=== PATIENT | male | born 1940 | race Caucasian/White ===

== ENCOUNTER → 2017-11-27 10:49 | Outpatient (CLI) | payer OTHER, SELFPAY ==
--- NOTE | 2017-11-27 | DI.ECHO.S_ITS ---
[facility] +---------+ : : [address] [place] : : : : [id number] : : : : Phone: [phone]+ Echocardiogram Report + + :Name: MG CHILDRESS Study Date: 11/27/2017 Height: 70 in : :[facility] Weight: 180 lb : : Gender: Male BSA: 2.0 m2 : :: 1940 Age: 77 yrs BP: 124/52 mmHg: :Reason For Study: Edema : : Performed By: Indy Perry : :Referring: YANETH ARELLANO : + + Interpretation Summary The left ventricle is normal in size, wall thickness, and systolic function without any focal wall motion abnormalities with the ejection fraction visually estimated to be 65-70%. Assessment of diastolic parameters indicates a relaxation abnormality of the left ventricle, consistent with normal filling pressures. The right ventricle is normal in size and function. There is mild pulmonary hypertension with the right ventricular systolic pressure estimated at 37 mmHg assuming a right atrial pressure of 3 mm Hg. The left atrium is moderately dilated and the right atrium is borderline dilated. There is no significant valvular heart disease. The aortic arch is at the upper limits of normal in size. Procedure: A two-dimensional transthoracic echocardiogram with color flow and Doppler was performed. The study quality was technically good. There is no prior echocardiogram noted for this patient. The patient was in normal sinus rhythm during the exam. Left Ventricle: The left ventricle is normal in size, wall thickness, and systolic function without any focal wall motion abnormalities. The ejection fraction is estimated to be 65-70%. Assessment of diastolic parameters indicates a relaxation abnormality of the left ventricle, consistent with normal filling pressures. Right Ventricle: The right ventricle is normal in size and function. Atria: The left atrium is moderately dilated. The right atrium is borderline dilated. The interatrial septum is intact with no evidence for an atrial septal defect. Mitral Valve: The mitral valve is normal in structure and function. There is trace mitral regurgitation. Aortic Valve: The aortic valve is trileaflet. The aortic valve is slightly calcified. The aortic valve opens well. No aortic regurgitation is present. Tricuspid Valve: The tricuspid valve is normal in structure and function. There is trace tricuspid regurgitation. There is mild pulmonary hypertension. The right ventricular systolic pressure is estimated at 37 mmHg assuming a right atrial pressure of 3 mm Hg. Pulmonic Valve: The pulmonic valve is normal in structure and function. There is trace pulmonic regurgitation. There is no significant valvular heart disease. Great Vessels: The aortic root is normal size. The dimensions of the ascending aorta are normal. The aortic arch is at the upper limits of normal in size. The IVC is of normal diameter and collapses greater than 50% with a sniff. This suggests a low right atrial pressure of 3 mm Hg. Pericardium/ Pleura There is no pericardial effusion. There is no pleural effusion. MMode/2D Measurements & Calculations LVIDd: 5.0 cm Ao root diam: 3.7 cm LVIDs: 2.8 cm Aortic Jxn: 2.7 cm FS: 43.7 % asc Aorta Diam: 2.9 cm EPSS: 0.18 cm Ao Arch Diam (Prox Trans): 3.0 cm IVSd: 1.00 cm LVPWd: 0.97 cm LV shelby. diameter/BSA (cm/m^2): 2.5 LV sys. diameter/BSA (cm/m^2): 1.4 LA dimension: 4.2 cm RA long axis: 5.0 cm LA A2 area: 26.5 cm2 RA area: 20.5 cm2 LA A4 area: 26.5 cm2 RA vol: 71.3 ml LA length (vol): 6.1 cm RA : 35.7 ml/m2 LA vol: 98.1 ml IVC diam: 1.5 cm LA vol index: 49.1 ml/m2 RVDd major: 5.5 cm RVD1 (basal): 3.6 cm RVD2 (mid): 3.1 cm Doppler Measurements & Calculations Ao V2 max: 195.3 cm/sec MV E max genaro: 74.1 cm/sec Ao V2 mean: 130.5 cm/sec MV A max genaro: 79.4 cm/sec Ao max P.3 mmHg MV E/A: 0.93 Ao mean P.9 mmHg Med Peak E' Genaro: 8.6 cm/sec Ao V2 VTI: 39.1 cm E/E' med: 8.7 Lat Peak E' Genaro: 10.2 cm/sec E/E' lat: 7.2 E/e' average: 7.9 MV dec time: 0.23 sec MV P1/2t: 67.3 msec TR max genaro: 292.4 cm/sec MV P1/2t max genaro: 72.8 cm/sec TR max P.2 mmHg MVA(P1/2t): 3.3 cm2 PA V2 max: 120.0 cm/sec PA V2 mean: 77.9 cm/sec PA mean P.8 mmHg PA Accel Time: 0.11 sec Reading Physician:CASSIDY
== END ==
PROVIDERS: PCP Internal Medicine; Visit Provider Physician Assistant
DX: R06.00 Dyspnea, unspecified (principal); R60.9 Edema, unspecified
CPT/HCPCS: 93306

== ENCOUNTER → 2018-06-20 09:09 | Outpatient (CLI) | payer OTHER, SELFPAY ==
[2018-06-20 10:13] LABS: BUN Creatinine Ratio 15.7 (6-22); Blood Urea Nitrogen 11 mg/dL (9-20); Calcium 8.7 mg/dL (8.4-10.2); Carbon Dioxide 28 mmol/L (22-32); Chloride 105 mmol/L (98-107); Estimated Glomerular Filt Rate > 60.0 mL/min (>60); Glucose 91 mg/dL (80-110); HEMOLYSIS < 15 (0-50); Potassium 4.2 mmol/L (3.4-5.1); Sodium 141 mmol/L (137-145)
== END ==
PROVIDERS: PCP Internal Medicine; Visit Provider Physician Assistant
DX: I10 Essential (primary) hypertension (principal)
CPT/HCPCS: 36415; 80048

== ENCOUNTER → 2018-12-16 13:16 | Outpatient (CLI) | payer OTHER, SELFPAY ==
--- NOTE | 2018-12-16 13:20 | DI.CT.S_ITS ---
PROCEDURE: CT CHEST WO CON INDICATIONS: CHEST PAIN TECHNIQUE: Noncontrast 5 mm thick sections acquired from the pulmonary apices to the posterior costophrenic angles. 7 mm thick coronal and sagittal MIP reformats were then acquired. For radiation dose reduction, the following was used: automated exposure control, adjustment of mA and/or kV according to patient size. COMPARISON: [facility], CT, ABDOMEN/PELVIS WITHOUT CONTRAS, 09/05/2012, 21:39. [facility], CR, CHEST 2 VIEW, 04/09/2017, 15:24. CT, ABDOMEN/PELVIS WITH CONTRAST, 07/24/2007, 8:55. FINDINGS: Image quality: Excellent. Lungs and pleura: There are right middle lobe and lingular scars and atelectasis. No acute air space opacities. No pleural effusions or pneumothorax. Central and peripheral airways are patent and normal in caliber. Mediastinum: Heart size is normal. No pericardial effusion. Coronary artery calcifications consistent with atherosclerosis. No mediastinal adenopathy by size criteria. Thoracic aorta and central pulmonary arteries are normal in size. Esophagus is normal in caliber. There is a small hiatal hernia. Bones and chest wall: Pectus excavatum. There is deformity of sternum, likely related to prior surgery. No suspicious bony lesions. No vertebral body compression fractures. No axillary or supraclavicular adenopathy by size criteria. Thyroid gland is normal. Abdomen: Small indeterminate hepatic hypodensities are noted, most likely cysts. Visualized upper abdominal solid organs and bowel loops appear normal in the absence of contrast. IMPRESSION: 1. Pectus excavatum. Deformity of sternum is likely postsurgical. Recommend clinical correlation. 2. Small hiatal hernia. 3. Coronary artery atherosclerosis. 4. Right middle lobe and lingular scars and atelectasis. 5. Small indeterminate hepatic hypodensities in the liver are presumably small hepatic cysts. Dictated by: Damion Stafford M.D. on 12/16/2018 at 15:47 Approved by: Damion Stafford M.D. on 12/16/2018 at 17:09
[2018-12-16 15:26] LABS: Alanine Aminotransferase 13 IU/L (21-72); Aspartate Aminotransferase 17 IU/L (17-59); BUN Creatinine Ratio 15.7 (6-22); Blood Urea Nitrogen 11 mg/dL (9-20); Calcium 9.2 mg/dL (8.4-10.2); Carbon Dioxide 29 mmol/L (22-32); Chloride 106 mmol/L (98-107); Cholesterol 151 mg/dL (140-199); Estimated Glomerular Filt Rate > 60.0 mL/min (>60); Glucose 90 mg/dL (80-110); HDL Cholesterol 55 mg/dL (40-60); HEMOLYSIS < 15 (0-50); LDL Cholesterol Calculated 75 mg/dL (<100); Potassium 4.7 mmol/L (3.4-5.1); Sodium 141 mmol/L (137-145); Triglycerides 105 mg/dL (35-150)
== END ==
PROVIDERS: PCP Physician Assistant; Visit Provider Internal Medicine
DX: R07.9 Chest pain, unspecified (principal); M95.4 Acquired deformity of chest and rib; K44.9 Diaphragmatic hernia without obstruction or gangrene; I25.10 Atherosclerotic heart disease of native coronary artery without angina pectoris; J98.4 Other disorders of lung; J98.11 Atelectasis; E78.00 Pure hypercholesterolemia, unspecified; I10 Essential (primary) hypertension
CPT/HCPCS: 36415; 71250; 80048; 80061; 84450; 84460

== ENCOUNTER → 2018-12-29 11:26 | Outpatient (CLI) | payer OTHER, SELFPAY ==
[2018-12-29 12:02] LABS: Add Manual Diff / Slide Review NO; Basophils Absolute Auto 0 /uL (0-100); Basophils Percent Auto 0.5 % (0-2); Eosinophils Absolute Auto 0 /uL (0-450); Eosinophils Percent Auto 0.5 % (2-4); Hematocrit 44.9 % (41-53); Hemoglobin 15.2 g/dL (13.5-17.5); Lymphocytes Absolute Auto 1200 /uL (1100-4500); Lymphocytes Percent Auto 17.4 % (25-40); Mean Corpuscular HGB Conc 33.9 % (30-36); Mean Corpuscular Hemoglobin 30.9 PG (26-34); Mean Corpuscular Volume 91.1 fL (80-100); Monocytes Absolute Auto 600 /uL (0-900); Neutrophils Absolute Auto 5000 /uL (1500-7000); Neutrophils Percent Auto 72.6 % (50-75); Platelet Count 192 X10^3/uL (150-400); Red Blood Cell Count 4.93 X10^6/uL (4.5-5.9); Red Cell Distribution Width 14.1 % (11.6-14.8); White Blood Cell Count 6.9 X10^3/uL (4.5-11.0)
[2018-12-29 13:02] LABS: TSH w/ Reflex to FT4 1.81 uIU/mL (0.47-4.68)
== END ==
PROVIDERS: PCP Physician Assistant; Visit Provider Nurse Practitioner
DX: I10 Essential (primary) hypertension (principal)
CPT/HCPCS: 36415; 84443; 85025

== ENCOUNTER → 2019-01-01 09:29 | Outpatient (CLI) | payer OTHER, SELFPAY ==
--- NOTE | 2019-01-01 09:31 | DI.US.S_ITS ---
PROCEDURE: US CAROTID DOPPLER BI INDICATIONS: RIGHT BRUIT; DIZZINESS TECHNIQUE: Color and pulse Doppler interrogation was performed of both carotid systems, with image documentation and velocity measurements. COMPARISON: None. FINDINGS: Stenosis calculations are based on SRU (Society of Radiologists in Ultrasound) criteria. Right side: Brachial blood pressure: 123/69 mm Hg. Common carotid artery peak systolic velocity: 123 cm/sec. Internal carotid artery peak systolic velocity: 84 cm/sec. Internal carotid artery end diastolic velocity: 22 cm/sec. External carotid artery peak systolic velocity: 80 cm/sec. ICA/CCA peak systolic ratio: 0.7. Emanuel scale imaging description: Mild plaque at the bifurcation. Percent internal carotid artery stenosis: Less than 50%. Vertebral artery: Flow direction is antegrade. Left side: Brachial blood pressure: 119/69 mm Hg. Common carotid artery peak systolic velocity: 135 cm/sec. Internal carotid artery peak systolic velocity: 92 cm/sec. Internal carotid artery end diastolic velocity: 23 cm/sec. External carotid artery peak systolic velocity: 129 cm/sec. ICA/CCA peak systolic ratio: 0.7. Emanuel scale imaging description: Mild plaque at the bifurcation. Percent internal carotid artery stenosis: Less than 50%. Vertebral artery: Flow direction is antegrade. IMPRESSION: Less than 50% stenosis of the internal carotid arteries bilaterally. Dictated by: Maura Graves M.D. on 01/01/2019 at 13:26 Approved by: Maura Graves M.D. on 01/01/2019 at 13:27
== END ==
PROVIDERS: PCP Nurse Practitioner; Visit Provider Nurse Practitioner
DX: I65.23 Occlusion and stenosis of bilateral carotid arteries (principal); R09.89 Other specified symptoms and signs involving the circulatory and respiratory systems; R42 Dizziness and giddiness
CPT/HCPCS: 93880

== ENCOUNTER 2019-03-02 21:35 | Emergency (ER) | payer OTHER, SELFPAY ==
--- NOTE | 2019-03-02 21:46 | DI.RAD.S_ITS ---
PROCEDURE: XR FOOT LT MIN 3V INDICATIONS: stepped on uneven concrete and felt a pop TECHNIQUE: 3 views of the foot were acquired. COMPARISON: None. FINDINGS: Bones: Subtle cortical irregularity in radiolucency involving medial aspect of fifth proximal phalangeal base is seen suggestive of a nondisplaced fracture in this area. Fracture line is seen extending to fifth MTP joint space. Likely bipartite lateral sesamoid of the first metatarsal head is seen with well corticated margin. No suspicious bony lesions. Well-defined plantar and dorsal calcaneal enthesophytes are seen. Soft tissues: No tibiotalar joint effusion. Achilles tendon appears normal. IMPRESSION: Finding is concerning for nondisplaced fracture involving medial aspect of fifth proximal phalangeal base. Dictated by: Vince Lemons M.D. on 03/03/2019 at 8:59 Approved by: Vince Lemons M.D. on 03/03/2019 at 9:02
[2019-03-02 21:47] VITALS: BP 158/67; PULSE 74; RESP 18; TEMP 36.4; O2SAT 98; BMI 22.9
--- NOTE | 2019-03-02 22:39 | ED.LOWEXIN ---
HPI - Extremity Injury (Lower) General Chief Complaint: Extremity Injury, Lower Stated Complaint: LEFT FOOT INJURY Time Seen by Provider: 03/02/19 21:43 Source: patient and family Mode of arrival: ambulatory Limitations: no limitations History of Present Illness HPI Narrative: 78-year-old male nonsmoker with history of hyperlipidemia and hypertension presents with his and a chief complaint of left foot pain after an injury earlier tonight. He was walking on uneven terrain and staffed awkwardly, and both felt, and heard a pop in the bottom of his foot. He denies any hip knee or ankle pain but admits to foot pain with weight-bearing. He denies any numbness, tingling or weakness MD complaint: foot injury Onset (ago): hour(s) Type of Injury: other Place: street/outdoors Severity: moderate Relieving factors: immobilization and rest Exacerbating factors: weight bearing and movement Context: walking Associated symptoms: snap/pop sensation Other symptoms: none Related Data Home Medications Medication Instructions Recorded Confirmed amlodipine 5 mg tablet 5 mg PO DAILY 12/29/18 12/29/18 losartan 100 mg tablet 100 mg PO DAILY 12/29/18 12/29/18 pravastatin 20 mg tablet 20 mg PO DAILY 12/29/18 12/29/18 sertraline 25 mg tablet 37.5 mg PO DAILY tab 12/29/18 12/29/18 Allergies Allergy/AdvReac Type Severity Reaction Status Date / Time iodine [IODINE] Allergy Intermediate NAUSEA/VOMI Verified 03/02/19 21:50 TING hydrocodone [HYDROCODONE] AdvReac Intermediate ITCHING Verified 03/02/19 21:50 Review of Systems Constitutional Denies chills, Denies fever(s), Denies lethargy and Denies weakness Eyes Denies change in vision, Denies eye discharge, Denies irritation and Denies loss of vision ENT Ears, Nose, Mouth, and Throat: Denies change in voice, Denies neck pain and Denies sore throat Cardiovascular Denies chest pain, Denies irregular heart rhythm, Denies lightheadedness, Denies palpitations, Denies dyspnea, Denies dyspnea on exertion and Denies orthopnea Respiratory Denies cough, Denies dyspnea, Denies dyspnea on exertion and Denies wheezing Gastrointestinal Gastrointestinal: Denies abdominal pain, Denies change in bowel habits, Denies diarrhea, Denies nausea and Denies vomiting Genitourinary Denies hematuria, Denies flank pain, Denies urinary incontinence and Denies urinary urgency Musculoskeletal Reports limited range of motion and Denies neck pain Integumentary/Breasts Denies pruritus, Denies erythema, Denies rash and Denies wounds Neurologic Denies confusion, Denies loss of vision and Denies weakness Psychiatric Denies anxiety, Denies confusion, Denies depression, Denies homicidal ideation and Denies suicidal ideation Endocrine Denies palpitations Hematologic/Lymphatic Denies easy bruising Allergic/Immunologic Denies wheezing [facility] Medical History COPD (chronic obstructive pulmonary disease) (Chronic) Colitis (Chronic) Diverticular disease (Chronic) Pancreatitis (Chronic) Vision disorder (Chronic) Bronchitis (Resolved) Surgical History Anesthesia (Resolved) Pectus excavatum (Resolved ~1954) Family History (Updated 01/10/19 @ 22:46 by Vita Perez) Father No problems noted. Mother Dementia Sister COPD (chronic obstructive pulmonary disease) Grandfather History of heart disease Hyperlipidemia Hypertension Grandfather Alcoholic Social History Smoking Status: Former smoker Family History Father No problems noted. Mother Dementia Sister COPD (chronic obstructive pulmonary disease) Grandfather History of heart disease Hyperlipidemia Hypertension Grandfather Alcoholic Social History Smoking Status: Former smoker Exam Narrative Exam Narrative: GEN: AOx3 and in mild distress EYES: Pupils are equal, round, and reactive to light and accommodation. Extraoccular muscles are intact bilaterally. There is no subconjunctival hemorrhage or exudate. CHEST: Lungs are clear to auscultation bilaterally and free of wheezes, rales, or rhonchi. Heart rate is regular rhythm, there are no murmurs, clicks, rubs, or gallops. There is no chest wall tenderness. ABD: Abdomen is soft and nontender. There is no guarding or rebound. Bowel sounds are normal in all 4 quadrants. There is no mass or organomegaly. EXT: No obvious deformity of left foot, closed, isolated and neurovascularly intact. Cap refill less than 2 seconds. Full range of motion of the toes. No pain along talus or 5th metatarsal. No pain with palpation along dorsal portion of foot. There is some pain on the plantar surface just proximal to the 4th metatarsophalangeal joint, without any crepitance or obvious external manifestation of injury SKIN: Warm, pink, and dry. No erythema or rash Initial Vital Signs Initial Vital Signs: Vital Signs Temperature 97.6 F 03/02/19 21:47 Pulse Rate 74 03/02/19 21:47 Respiratory Rate 18 03/02/19 21:47 Blood Pressure 158/67 H 03/02/19 21:47 Pulse Oximetry 98 03/02/19 21:47 Procedures Orthopedic Splinting/Casting Injury #1: Side: left Lower Extremity Injury Location: foot Lower Extremity Immobilizer: post-op shoe Post splinting neuro exam: intact Post splinting vascular exam: intact Placed by: Nursing Course Orders Ordered: ED Orders 03/02/19 21:46 XR foot LT min 3V Stat Vital Signs - 8 hr 03/02/19 21:47 Temperature 97.6 F Pulse Rate 74 Respiratory Rate 18 Blood Pressure 158/67 H Pulse Oximetry 98 MDM - Extremity Injury (Lower) Imaging Data Foot Xray: My impression: No fracture, no obvious ligamentous instability such as lis franc injury Discharge Plan Departure Patient Disposition: Home Clinical Impression: Sprain of left foot Qualifiers: Encounter type: initial encounter Qualified Code(s): S93.602A - Unspecified sprain of left foot, initial encounter Discharge Date/Time: 03/02/19 23:00 Interventions: ED Discharge Assessment Last Done: 03/02/19 22:40 Instructions: DI for Foot Sprain Activity Restrictions/Additional Instructions: *You have been diagnosed with [left foot sprain] *What to do: *Take medications as directed: Tylenol or Motrin for pain *Follow up with your primary care provider on Saturday as planned *Return to ER if you should have any new, worsening or concerning symptoms Prescriptions: No Action losartan 100 mg tablet 100 mg PO DAILY RF: 0 sertraline 25 mg tablet 37.5 mg PO DAILY RF: 0 pravastatin 20 mg tablet 20 mg PO DAILY RF: 0 amlodipine 5 mg tablet 5 mg PO DAILY RF: 0 Referrals: Rosmery Mays ARNP [Primary Care Provider] -
== END 2019-03-02 23:00 | disposition home or self-care (01) ==
PROVIDERS: Emergency Provider Emergency Medicine; PCP Nurse Practitioner
DX: S93.602A Unspecified sprain of left foot, initial encounter (principal)
CPT/HCPCS: 73630; 99282; 99283

== ENCOUNTER → 2019-08-19 19:11 | Outpatient (ROUT) | payer OTHER, SELFPAY ==
[2019-08-19 19:39] LABS: Blood Urea Nitrogen 16 mg/dL (9-20); Calcium 9.3 mg/dL (8.4-10.2); Carbon Dioxide 26 mmol/L (22-32); Chloride 104 mmol/L (98-107); Estimated Glomerular Filt Rate > 60.0 mL/min (>60); Glucose 76 mg/dL (80-110); HEMOLYSIS < 15 (0-50); Potassium 4.4 mmol/L (3.4-5.1); Sodium 139 mmol/L (137-145)
[2019-08-19 19:57] LABS: TSH w/ Reflex to FT4 1.89 uIU/mL (0.47-4.68)
[2019-08-19 20:27] LABS: Vitamin B12 992 pg/mL (239-931)
== END ==
PROVIDERS: PCP Nurse Practitioner; Visit Provider Internal Medicine
DX: R20.2 Paresthesia of skin (principal)
CPT/HCPCS: 80048; 82607; 84443

== ENCOUNTER → 2020-04-12 19:10 | Outpatient (ROUT) | payer OTHER, SELFPAY ==
[2020-04-12 19:33] LABS: Add Manual Diff / Slide Review NO; Alanine Aminotransferase 15 IU/L (<50); Albumin 3.5 g/dL (3.5-5.0); Albumin Globulin Ratio 1.4 (1.0-2.8); Alkaline Phosphatase 58 U/L (38-126); Aspartate Aminotransferase 23 IU/L (17-59); BUN Creatinine Ratio 17.3 (6-22); Basophils Absolute Auto 0 /uL (0-100); Basophils Percent Auto 0.5 % (0-2); Bilirubin Total 0.5 mg/dL (0.2-1.3); Blood Urea Nitrogen 13 mg/dL (9-20); Calcium 9.1 mg/dL (8.4-10.2); Carbon Dioxide 31 mmol/L (22-32); Chloride 105 mmol/L (98-107); Cholesterol 127 mg/dL (140-199); Eosinophils Absolute Auto 0 /uL (0-450); Eosinophils Percent Auto 0.7 % (2-4); Estimated Glomerular Filt Rate > 60.0 mL/min (>60); Globulin 2.5 g/dL (1.7-4.1); Glucose 134 mg/dL (80-110); HDL Cholesterol 45 mg/dL (40-60); HEMOLYSIS < 15 (0-50); Hematocrit 42.5 % (41-53); Hemoglobin 14.4 g/dL (13.5-17.5); LDL Cholesterol Calculated 61 mg/dL (<100); Lymphocytes Absolute Auto 1200 /uL (1100-4500); Lymphocytes Percent Auto 18.9 % (25-40); Mean Corpuscular HGB Conc 33.9 % (30-36); Mean Corpuscular Hemoglobin 31.4 PG (26-34); Mean Corpuscular Volume 92.5 fL (80-100); Monocytes Absolute Auto 600 /uL (0-900); Monocytes Percent Auto 8.7 % (3-14); Neutrophils Absolute Auto 4500 /uL (1500-7000); Neutrophils Percent Auto 71.2 % (50-75); Platelet Count 179 X10^3/uL (150-400); Potassium 4.2 mmol/L (3.4-5.1); Red Blood Cell Count 4.59 X10^6/uL (4.5-5.9); Red Cell Distribution Width 13.2 % (11.6-14.8); Sodium 140 mmol/L (137-145); Triglycerides 103 mg/dL (35-150); White Blood Cell Count 6.3 X10^3/uL (4.5-11.0)
== END ==
PROVIDERS: PCP Nurse Practitioner; Visit Provider Physician Assistant
DX: E78.5 Hyperlipidemia, unspecified (principal); I10 Essential (primary) hypertension
CPT/HCPCS: 80053; 80061; 85025

== ENCOUNTER → 2020-08-10 08:41 | Outpatient (CLI) | payer MEDICARE, SELFPAY ==
[2020-08-10] MEDS: COVID-19 VACC #1, MRNA(MOD) 100 MCG/0.5 ML VIAL IM (08:50)
== END ==
PROVIDERS: PCP Nurse Practitioner; Visit Provider Internal Medicine
DX: Z23 Encounter for immunization (principal)
CPT/HCPCS: 0011A; 91301

== ENCOUNTER → 2020-09-08 08:54 | Outpatient (CLI) | payer MEDICARE, SELFPAY ==
[2020-09-08] MEDS: COVID-19 VACC #2, MRNA(MOD) 100 MCG/0.5 ML VIAL IM (09:03)
== END ==
PROVIDERS: PCP Nurse Practitioner; Visit Provider Internal Medicine
DX: Z23 Encounter for immunization (principal)
CPT/HCPCS: 0012A; 91301

== ENCOUNTER 2021-03-02 09:48 | Inpatient (IN) | payer OTHER, SELFPAY ==
[2021-03-02] VITALS (17 sets, daily range): BP systolic 129–184; BP diastolic 65–85; PULSE 68–95; RESP 14–27; TEMP 36.3–36.6; O2SAT 94–98; BMI 22.2; BMI 22.7
--- NOTE | 2021-03-02 09:56 | DI.RAD.S_ITS ---
PROCEDURE: XR CHEST 1V INDICATIONS: chest pain TECHNIQUE: One view of the chest was acquired. COMPARISON: [facility], , CHEST 2 VIEW, 04/09/2017, 15:24. FINDINGS: Surgical changes and devices: None. Lungs and pleura: Lungs are clear. No pleural effusions or pneumothorax. Mediastinum: Mediastinal contours appear normal. Heart size is normal. Bones and chest wall: No suspicious bony lesions. Overlying soft tissues appear unremarkable. IMPRESSION: No acute cardiopulmonary disease process. Dictated by: Emily Dey MD, PhD on 03/02/2021 at 10:19 Approved by: Emily Dey MD, PhD on 03/02/2021 at 10:20
--- NOTE | 2021-03-02 10:46 | DI.CT.S_ITS ---
PROCEDURE: CT ABDOMEN PELVIS WO CON INDICATIONS: Upper abdominal pain TECHNIQUE: Noncontrast 5 mm thick sections acquired from the diaphragms to the symphysis. 5 mm coronal and sagittal reformats were then performed. For radiation dose reduction, the following was used: automated exposure control, adjustment of mA and/or kV according to patient size. COMPARISON: [facility], CT, CT CHEST WO CON, 12/16/2018, 13:18. [facility], CT, ABDOMEN/PELVIS WITHOUT CONTRAS, 09/05/2012, 21:39. FINDINGS: Image quality: Excellent. ABDOMEN: Lung bases: Lung bases are clear. Heart size is normal. Solid organs: Liver is normal in size. Gallbladder is unremarkable. Pancreas is normal in contours. Spleen is normal in size. No adrenal nodules. Kidneys are atrophic in size, without hydronephrosis. Punctate nonobstructing left renal calculus is noted. Prominent bilateral parapelvic cysts are noted. Peritoneum and bowel: There dilated fluid filled small bowel loops, the greatest AP measurement of 2.8 cm. Definitive transition point is not identified. Mild dependent pelvic fluid is present. Prominent colonic diverticula are present. There is thickened appearance of ascending and transverse colon. Nodes and vessels: No retroperitoneal or mesenteric adenopathy by size criteria. Aorta and inferior vena cava are normal in caliber. Miscellaneous: No ventral hernias. PELVIS: Genitourinary: Bladder wall thickness is normal. Miscellaneous: No inguinal hernias or adenopathy. Bones: No suspicious bony lesions. No vertebral body compression fractures. IMPRESSION: 1. [id number] partial small bowel obstruction without definitive transition point. 2. Significant colonic diverticula. There is thickened appearance of the ascending and transverse colon without definitive inflammation. While this could be secondary to colitis, incomplete distention is suspected. 3. Mild dependent free fluid. Dictated by: Maura Graves M.D. on 03/02/2021 at 11:47 Approved by: Maura Graves M.D. on 03/02/2021 at 12:31
[2021-03-02] MEDS: SODIUM CHLORIDE 0.9% 1,000 ML 1000 ML IV (10:51)
[2021-03-02 10:53] LABS: Add Manual Diff / Slide Review NO; Basophils Absolute Auto 100 /uL (0-100); Basophils Percent Auto 0.4 % (0-2); Eosinophils Absolute Auto 0 /uL (0-450); Eosinophils Percent Auto 0.3 % (2-4); Hematocrit 48.2 % (41-53); Hemoglobin 16.6 g/dL (13.5-17.5); Lymphocytes Absolute Auto 1700 /uL (1100-4500); Lymphocytes Percent Auto 11.7 % (25-40); Mean Corpuscular HGB Conc 34.5 % (30-36); Mean Corpuscular Hemoglobin 31.8 PG (26-34); Mean Corpuscular Volume 92.3 fL (80-100); Monocytes Absolute Auto 600 /uL (0-900); Monocytes Percent Auto 4.4 % (3-14); Neutrophils Absolute Auto 12300 /uL (1500-7000); Neutrophils Percent Auto 83.2 % (50-75); Platelet Count 213 X10^3/uL (150-400); Red Blood Cell Count 5.22 X10^6/uL (4.5-5.9); Red Cell Distribution Width 13.6 % (11.6-14.8); White Blood Cell Count 14.8 X10^3/uL (4.5-11.0)
--- NOTE | 2021-03-02 10:54 | ED_ITS ---
HPI - Abdominal Pain General Chief Complaint: Chest Pain Stated Complaint: hx of pancreatitis, abdominal pain Time Seen by Provider: 03/02/21 10:30 Source: patient Mode of arrival: Ambulatory Limitations: no limitations History of Present Illness HPI narrative: Patient here with . Complains 24 hours of abdominal distension and bloating sensation discomfort level 5/10. No chest pain no back pain. No nausea or vomiting. No urinary complaints. Last bowel movement 1 or 2 days ago. History of pancreatitis but does not feel the same. No history of heart attack or stroke. 10 lb weight loss in the past month. No night sweats. No recent illness no fever chills cough cold or congestion Related Data Home Medications Medication Instructions Recorded Confirmed amlodipine 5 mg tablet 10 mg PO DAILY 12/29/18 03/02/21 losartan 100 mg tablet 100 mg PO DAILY 12/29/18 03/02/21 pravastatin 20 mg tablet 20 mg PO DAILY 12/29/18 03/02/21 venlafaxine 37.5 mg 37.5 mg PO DAILY 03/02/21 03/02/21 tablet,extended release 24 hr Allergies Allergy/AdvReac Type Severity Reaction Status Date / Time iodine [IODINE] Allergy Intermediate NAUSEA/VOMI Verified 03/02/21 09:56 TING hydrocodone [HYDROCODONE] AdvReac Intermediate ITCHING Verified 03/02/21 09:56 Review of Systems Review of Systems Narrative: GENERAL: Denies chills, fatigue, malaise, fever, sweats. HEENT: Denies sinus pain, ear pain, sore throat RESPIRATORY: Denies dyspnea, cough CARDIOVASCULAR: Denies chest pain, palpitations GASTROINTESTINAL: Denies nausea, vomiting, complains abdominal pain : Denies dysuria, frequency, hematuria MUSCULOSKELETAL: denies muscle or bony pain SKIN: Denies rash, skin lesions NEUROLOGIC: Denies weakness, numbness ROS Unobtainable: All systems reviewed & are unremarkable except as noted in HPI and below Patient History Medical History Bronchitis Colitis COPD (chronic obstructive pulmonary disease) Diverticular disease Pancreatitis Vision disorder Surgical History Anesthesia Pectus excavatum (~1954) Family History Father No problems noted. Mother Dementia Sister COPD (chronic obstructive pulmonary disease) Grandfather History of heart disease Hyperlipidemia Hypertension Grandfather Alcoholic Social History household members: spouse Smoking Status: Former smoker alcohol intake: former Smoking Status: Former smoker alcohol intake frequency: 0-2 drinks per day Substance Use Type: marijuana Exam Narrative Exam Narrative: GENERAL: in no distress, not toxic not dyspneic HEAD: Normocephalic. EYES: Pupils equal round No scleral icterus. No injection no discharge ENT: Mucous membranes moist. NECK: Trachea midline. CARDIOVASCULAR: Regular rate and rhythm without murmurs RESPIRATORY: Clear to auscultation. Breath sounds equal bilaterally. No wheezes, rales, or rhonchi. GASTROINTESTINAL: Abdomen soft, reproducible right upper quadrant left upper quadrant epigastric mild tenderness, no peritoneal signs, bowel sounds present EXTREMITIES: No gross deformities. BACK: No flank tenderness. NEURO: AOx4. SKIN: Warm and dry PSYCH: Not anxious, is cooperative Initial Vital Signs Initial Vital Signs: Vital Signs Temperature 97.6 F 03/02/21 09:50 Pulse Rate 93 H 03/02/21 09:50 Respiratory Rate 14 03/02/21 09:50 Blood Pressure 162/84 H 03/02/21 09:50 Pulse Oximetry 97 03/02/21 09:50 Course Course Course Narrative: No new issues during course of stay Decision to Admit Date: 03/02/21 Decision to Admit time: 13:25 Orders Ordered: Discontinued Medications Amlodipine Besylate (Amlodipine 5 Mg Tablet) 5 mg PO DAILY [facility] Last Admin: 03/04/21 09:55 Dose: 5 mg Documented by: Admin: 03/03/21 08:55 Dose: Not Given Documented by: JON Benzocaine (Benzocaine/Menthol 1 Katie Pkt) 1 each PO Q1HR PRN PRN Reason: Sore Throat Famotidine (Famotidine 20 Mg/2 Ml Vial) 40 mg IV DAILY [facility] Last Admin: 03/03/21 08:56 Dose: 40 mg Documented by: JON Famotidine (Famotidine 20 Mg/2 Ml Vial) 20 mg IV BID [facility] Last Admin: 03/04/21 09:55 Dose: 20 mg Documented by: CPETRIC Sodium Chloride (Normal Saline 0.9%) 1,000 mls @ 1,000 mls/hr IV BOLUS ONE Stop: 03/02/21 11:45 Last Infusion: 03/02/21 12:52 Dose: 0 mls/hr Documented by: Admin: 03/02/21 10:51 Dose: 1,000 mls/hr Documented by: DASH Lactated Ringer's (Lactated Ringers) 1,000 mls @ 150 mls/hr IV CONT [facility] Last Infusion: 03/04/21 10:40 Dose: 0 mls/hr Documented by: Infusion: 03/04/21 03:52 Dose: 150 mls/hr Documented by: Admin: 03/04/21 03:52 Dose: 150 mls/hr Documented by: Infusion: 03/04/21 03:07 Dose: 150 mls/hr Documented by: Admin: 03/03/21 20:26 Dose: 150 mls/hr Documented by: Infusion: 03/03/21 13:02 Dose: 150 mls/hr Documented by: Admin: 03/03/21 06:21 Dose: 150 mls/hr Documented by: Infusion: 03/03/21 05:59 Dose: 150 mls/hr Documented by: Admin: 03/02/21 23:18 Dose: 150 mls/hr Documented by: Infusion: 03/02/21 22:56 Dose: 150 mls/hr Documented by: Admin: 03/02/21 16:15 Dose: 150 mls/hr Documented by: GUERDA Losartan Potassium (Losartan 50 Mg Tablet) 100 mg PO DAILY [facility] Last Admin: 03/04/21 09:55 Dose: 100 mg Documented by: Admin: 03/03/21 08:55 Dose: Not Given Documented by: JON Naloxone HCl (Naloxone 0.4 Mg/Ml Vial) 0.2 mg IV Q2MIN PRN PRN Reason: Opiate Reversal Home Med Storage 0 each PO PRN PRN PRN Reason: HOME MED STORAGE Ondansetron HCl (Ondansetron 4 Mg/2 Ml Inj) 4 mg IV Q4HR PRN PRN Reason: Nausea And Vomiting Venlafaxine HCl (Venlafaxine 37.5 Mg Tablet) 37.5 mg PO DAILY [facility] Last Admin: 03/03/21 08:55 Dose: Not Given Documented by: JON Venlafaxine HCl (Venlafaxine Er 37.5 Mg Cap) 37.5 mg PO DAILY [facility] Last Admin: 03/04/21 09:55 Dose: 37.5 mg Documented by: CPETRIC Reevaluation(s) Reevaluation #1: Reviewed results with patient. Understands diagnosis and agrees for admit. No nausea or vomiting at this time. No pain Time: 13:25 Consultations Consultation #1: Spoke with general surgery, Dr Owens, he will admit patient. Does not need printer technician at this time. No NG tube as patient has no nausea or vomiting or abdominal pain at this time. He will place orders and Time: 13:26 Vital Signs Vital signs: Vital Signs - 8 hr 03/02/21 09:50 03/02/21 09:56 03/02/21 10:00 Temperature 97.6 F Pulse Rate 93 H 84 93 H Respiratory Rate 14 14 Blood Pressure 162/84 H Pulse Oximetry 97 96 97 03/02/21 10:03 03/02/21 10:30 03/02/21 11:00 Temperature Pulse Rate 90 86 72 Respiratory Rate 20 20 20 Blood Pressure 129/79 141/78 H 133/67 Pulse Oximetry 95 95 97 03/02/21 11:30 03/02/21 11:39 Temperature Pulse Rate 69 72 Respiratory Rate 26 H 22 Blood Pressure 152/72 H 175/85 H Pulse Oximetry 98 98 MDM - Abdominal Pain Differential Diagnosis Differential diagnosis: Likely abdominal pain, constipation, diverticulitis, pancreatitis and small bowel obstruction Lab Data Result diagrams: 03/03/21 07:25 03/03/21 07:25 Labs: Lab Results 03/02/21 03/02/21 03/02/21 Range/Units 10:00 10:00 10:00 WBC 14.8 H (4.5-11.0) X10^3/uL RBC 5.22 (4.5-5.9) X10^6/uL Hgb 16.6 (13.5-17.5) g/dL Hct 48.2 (41-53) % MCV 92.3 (80-100) fL MCH 31.8 (26-34) PG MCHC 34.5 (30-36) % RDW 13.6 (11.6-14.8) % Plt Count 213 (150-400) X10^3/uL Neut % (Auto) 83.2 H (50-75) % Lymph % (Auto) 11.7 L (25-40) % [place] % (Auto) 4.4 (3-14) % Eos % (Auto) 0.3 L (2-4) % Baso % (Auto) 0.4 (0-2) % Neut # (Auto) 66074 H (1233-2017) /uL Lymph # (Auto) 1700 (6539-3476) /uL [place] # (Auto) 600 (0-900) /uL Eos # (Auto) 0 (0-450) /uL Baso # (Auto) 100 (0-100) /uL PT 11.2 (10.1-12.7) SECONDS INR 1.0 (0.9-1.3) APTT 32 (26.4-36.2) SECONDS Sodium 140 (137-145) mmol/L Potassium 3.9 (3.4-5.1) mmol/L Chloride 106 (98-107) mmol/L Carbon Dioxide 27 (22-32) mmol/L BUN 17 (9-20) mg/dL Creatinine 0.82 (0.66-1.25) mg/dL Estimated GFR > 60.0 (>60) mL/min BUN/Creatinine Ratio 20.7 (6-22) Glucose 165 H (80-110) mg/dL Calcium 9.6 (8.4-10.2) mg/dL Total Bilirubin 0.7 (0.2-1.3) mg/dL AST 21 (17-59) IU/L ALT 15 (<50) IU/L Alkaline Phosphatase 79 (38-126) U/L Total Creatine Kinase 36 L (55-170) U/L CK-MB (CK-2) TNP CK-MB (CK-2) Rel Index TNP Troponin I < 0.012 (0.01-0.034) ng/mL Total Protein 6.9 (6.3-8.2) g/dL Albumin 4.2 (3.5-5.0) g/dL Globulin 2.7 (1.7-4.1) g/dL Albumin/Globulin Ratio 1.6 (1.0-2.8) Lipase 93 (23-300) U/L SARS-CoV-2 (PCR) (Negative) 03/02/21 Range/Units 12:57 WBC (4.5-11.0) X10^3/uL RBC (4.5-5.9) X10^6/uL Hgb (13.5-17.5) g/dL Hct (41-53) % MCV (80-100) fL MCH (26-34) PG MCHC (30-36) % RDW (11.6-14.8) % Plt Count (150-400) X10^3/uL Neut % (Auto) (50-75) % Lymph % (Auto) (25-40) % [place] % (Auto) (3-14) % Eos % (Auto) (2-4) % Baso % (Auto) (0-2) % Neut # (Auto) (3954-1821) /uL Lymph # (Auto) (0258-9915) /uL [place] # (Auto) (0-900) /uL Eos # (Auto) (0-450) /uL Baso # (Auto) (0-100) /uL PT (10.1-12.7) SECONDS INR (0.9-1.3) APTT (26.4-36.2) SECONDS Sodium (137-145) mmol/L Potassium (3.4-5.1) mmol/L Chloride (98-107) mmol/L Carbon Dioxide (22-32) mmol/L BUN (9-20) mg/dL Creatinine (0.66-1.25) mg/dL Estimated GFR (>60) mL/min BUN/Creatinine Ratio (6-22) Glucose (80-110) mg/dL Calcium (8.4-10.2) mg/dL Total Bilirubin (0.2-1.3) mg/dL AST (17-59) IU/L ALT (<50) IU/L Alkaline Phosphatase (38-126) U/L Total Creatine Kinase (55-170) U/L CK-MB (CK-2) CK-MB (CK-2) Rel Index Troponin I (0.01-0.034) ng/mL Total Protein (6.3-8.2) g/dL Albumin (3.5-5.0) g/dL Globulin (1.7-4.1) g/dL Albumin/Globulin Ratio (1.0-2.8) Lipase (23-300) U/L SARS-CoV-2 (PCR) Negative (Negative) Imaging Data Chest x-ray: Radiologist's Impression: [address] [id number] ReportSigned Patient: Andrey Eason CMR#: [id number]: 1940Acct:[id number]/Sex: 80 / MDate of Service: 03/02/21Loc: EDAccession Number: [id number] Procedure: XR chest 1V Ordering Provider: Jarrell Corrales MD PROCEDURE: XR CHEST 1V INDICATIONS: chest pain TECHNIQUE: One view of the chest was acquired. COMPARISON: [facility], CR, CHEST 2 VIEW, 04/09/2017, 15:24. FINDINGS: Surgical changes and devices: None. Lungs and pleura: Lungs are clear. No pleural effusions or pneumothorax. Mediastinum: Mediastinal contours appear normal. Heart size is normal. Bones and chest wall: No suspicious bony lesions. Overlying soft tissues appear unremarkable. IMPRESSION: No acute cardiopulmonary disease process. Dictated by: Emily Dey MD, PhD on 03/02/2021 at 10:19 Approved by: Emily Dey MD, PhD on 03/02/2021 at 10:20 CT scan - abdomen/pelvis: Radiologist's Impression: [address] [id number] Scan ReportSigned Patient: Andrey Eason CMR#: [id number]: 1940Acct:[id number]/Sex: 80 / MDate of Service: 03/02/21Loc: EDAccession Number: [id number] Procedure: CT abdomen pelvis wo con Ordering Provider: Jarrell Corrales MD PROCEDURE: CT ABDOMEN PELVIS WO CON INDICATIONS: Upper abdominal pain TECHNIQUE: Noncontrast 5 mm thick sections acquired from the diaphragms to the symphysis. 5 mm coronal and sagittal reformats were then performed. For radiation dose reduction, the following was used: automated exposure control, adjustment of mA and/or kV according to patient size. COMPARISON: [facility], CT, CT CHEST WO CON, 12/16/2018, 13:18. [facility], CT, ABDOMEN/PELVIS WITHOUT CONTRAS, 09/05/2012, 21:39. FINDINGS: Image quality: Excellent. ABDOMEN: Lung bases: Lung bases are clear. Heart size is normal. Solid organs: Liver is normal in size. Gallbladder is unremarkable. Pancreas is normal in contours. Spleen is normal in size. No adrenal nodules. Kidneys are atrophic in size, without hydronephrosis. Punctate nonobstructing left renal calculus is noted. Prominent bilateral parapelvic cysts are noted. Peritoneum and bowel: There dilated fluid filled small bowel loops, the greatest AP measurement of 2.8 cm. Definitive transition point is not identified. Mild dependent pelvic fluid is present. Prominent colonic diverticula are present. There is thickened appearance of ascending and transverse colon. Nodes and vessels: No retroperitoneal or mesenteric adenopathy by size criteria. Aorta and inferior vena cava are normal in caliber. Miscellaneous: No ventral hernias. PELVIS: Genitourinary: Bladder wall thickness is normal. Miscellaneous: No inguinal hernias or adenopathy. Bones: No suspicious bony lesions. No vertebral body compression fractures. IMPRESSION: 1. [id number] partial small bowel obstruction without definitive transition point. 2. Significant colonic diverticula. There is thickened appearance of the ascending and transverse colon without definitive inflammation. While this could be secondary to colitis, incomplete distention is suspected. 3. Mild dependent free fluid. Dictated by: Maura Graves M.D. on 03/02/2021 at 11:47 Approved by: Maura Graves M.D. on 03/02/2021 at 12:31 ECG Data Interpretation: Sinus rhythm rate [address] elevation. MDM Narrative Medical decision making narrative: Appropriate for admission for surgical evaluation, spoke with patient and . Agree for admit. Discharge Plan Departure Patient Disposition: Admitted as Observation Clinical Impression: Partial small bowel obstruction Admit Date/Time: 03/02/21 13:27 Admit Provider: Chinmay Owens
[2021-03-02 11:03] LABS: Prothrombin Time 11.2 SECONDS (10.1-12.7)
[2021-03-02 11:06] LABS: PTT Partial Thromboplastin Tim 32 SECONDS (26.4-36.2)
[2021-03-02 11:08] LABS: Alanine Aminotransferase 15 IU/L (<50); Albumin 4.2 g/dL (3.5-5.0); Albumin Globulin Ratio 1.6 (1.0-2.8); Alkaline Phosphatase 79 U/L (38-126); Aspartate Aminotransferase 21 IU/L (17-59); BUN Creatinine Ratio 20.7 (6-22); Bilirubin Total 0.7 mg/dL (0.2-1.3); Blood Urea Nitrogen 17 mg/dL (9-20); Calcium 9.6 mg/dL (8.4-10.2); Carbon Dioxide 27 mmol/L (22-32); Chloride 106 mmol/L (98-107); Creatine Kinase 36 U/L (55-170); Estimated Glomerular Filt Rate > 60.0 mL/min (>60); Globulin 2.7 g/dL (1.7-4.1); Glucose 165 mg/dL (80-110); HEMOLYSIS < 15 (0-50); Lipase 93 U/L (23-300); Potassium 3.9 mmol/L (3.4-5.1); Sodium 140 mmol/L (137-145); Total Protein 6.9 g/dL (6.3-8.2)
[2021-03-02 11:19] LABS: Troponin I < 0.012 ng/mL (0.01-0.034)
[2021-03-02 13:57] LABS: COVID19 - ADMIT (NP swab/PCR) Negative (Negative)
--- NOTE | 2021-03-02 14:59 | CM.SWNOTE ---
COMMERCIAL PARTS PROFESSIONAL Note COMMERCIAL PARTS PROFESSIONAL receives consult and enters room to meet with patient and Aura. Patient is 80 y/o male who presents to the ED with concern for abdominal pain. Patient is A/Ox4 and coherent. Patient receives calls from family throughout ED visit. Patient reports he lives at home with . Patient endorses that he started having medical concerns and pain around the same time his started having memory loss issues about a month ago. Patient endorses he contact his daughter and son who live within a few hours away regarding his ED encounter and hospital stay. Both patient and indicate that will stay in hospital room with patient, until patient speaks with children further to see if they could potentially stay with at the house. Patient endorses he is open to higher level of care for patient and . COMMERCIAL PARTS PROFESSIONAL discusses caregivers, HH, and ALFs. COMMERCIAL PARTS PROFESSIONAL provides senior resource guide for review. COMMERCIAL PARTS PROFESSIONAL discusses that patient will meet with DCP during his stay at further for POC. Plan: Patient to admit to Acute Care OBS for surgical evaluation accepted by Dr. Owens, family and patient to look into higher level of care, DCP to f/u for POC upon d/c
--- NOTE | 2021-03-02 16:04 | P.HP_ITS ---
History of Present Illness History of Present Illness Chief complaint: hx of pancreatitis, abdominal pain Narrative: The patient is a gentleman who has a 2 day history obstipation and abdominal discomfort. Id the discomfort is vague. He came to the emergency room and was evaluated and I was asked to admit him. He has had no vomiting. No real pain. Patient has had pancreatitis in the past but no abdominal o perations other than an inguinal hernia repair. He does not eat a particularly large amount of vegetables which are poorly digested such as kale. He has not had these symptoms before. It was never determined the source of the patient's pancreatitis. This occurred in [place] Patient History Medical History Bronchitis Colitis COPD (chronic obstructive pulmonary disease) Diverticular disease Pancreatitis Vision disorder Surgical History Anesthesia Pectus excavatum (~1954) Family & Social History Family History Father No problems noted. Mother Dementia Sister COPD (chronic obstructive pulmonary disease) Grandfather History of heart disease Hyperlipidemia Hypertension Grandfather Alcoholic Social History: household members spouse Prior Living Arrangements House Safety & Behavioral: Feels Safe in Current Yes Environment Been Physically Hurt or No Threatened By a Person Suicidal Ideation Description None Suicide Plan Description No Plan Tobacco & Substance use: Smoking Status Former smoker alcohol intake former alcohol intake frequency 0-2 drinks per day Substance Use Type marijuana Meds Home Medications and Allergies Home Medications Medication Instructions Recorded Confirmed Type amlodipine 5 mg tablet 10 mg PO DAILY 12/29/18 03/02/21 History losartan 100 mg tablet 100 mg PO DAILY 12/29/18 03/02/21 History pravastatin 20 mg tablet 20 mg PO DAILY 12/29/18 03/02/21 History venlafaxine 37.5 mg 37.5 mg PO DAILY 03/02/21 03/02/21 History tablet,extended release 24 hr Allergies Allergy/AdvReac Type Severity Reaction Status Date / Time iodine [IODINE] Allergy Intermediate NAUSEA/VOMI Verified 03/02/21 09:56 TING hydrocodone [HYDROCODONE] AdvReac Intermediate ITCHING Verified 03/02/21 09:56 Review of Systems Review of Systems Narrative: Patient has had cataract surgery otherwise no visual difficulties. No tooth aches or trouble swallowing. No cough cold. Does have COPD. Rarely uses any medication for it however. No heart problems that he is aware of. No chest pain. No black or bloody bowel movements. No seizures or blackouts. He does take medication for depression. Does have hypertension. He has no difficulty urinating or blood in his urine. Exam Vital Signs (past 8 hours): - 03/02/21 09:50 03/02/21 09:56 03/02/21 10:00 Temperature 97.6 F Pulse Rate 93 H 84 93 H Respiratory Rate 14 14 Blood Pressure 162/84 H Pulse Oximetry 97 96 97 03/02/21 10:03 03/02/21 10:30 03/02/21 11:00 Temperature Pulse Rate 90 86 72 Respiratory Rate 20 20 20 Blood Pressure 129/79 141/78 H 133/67 Pulse Oximetry 95 95 97 03/02/21 11:30 03/02/21 11:39 03/02/21 12:00 Temperature Pulse Rate 69 72 68 Respiratory Rate 26 H 22 24 Blood Pressure 152/72 H 175/85 H 139/65 Pulse Oximetry 98 98 97 03/02/21 12:30 03/02/21 13:00 03/02/21 13:30 Temperature Pulse Rate 73 75 80 Respiratory Rate 21 23 27 H Blood Pressure 164/76 H 184/81 H 163/76 H Pulse Oximetry 98 98 97 03/02/21 14:00 03/02/21 14:30 03/02/21 15:40 Temperature 97.3 F L Pulse Rate 78 74 72 Respiratory Rate 17 25 H 16 Blood Pressure 152/76 H 156/78 H 157/72 H Pulse Oximetry 96 96 96 Oxygen Delivery Method Room Air Narrative Exam Narrative: Cooperative gentleman laying comfortably in no apparent distress. His eyes are nonicteric. Oral mucosa is dry as an upper plate in no obvious open lesions. Neck is supple. No nodes in the neck or supraclavicular area. trachea is midline mobile. Lungs are clear to auscultation without rales or rhonchi. Equal percussion. Heart regular rate and rhythm without murmur or gallop. No heave lift or thrill. No bruit in the neck. His abdomen muscle wall is doughy and lax. There are no palpable masses. No guarding no tenderness. Suspect there is some distension though the patient is unsure if that is true. Patient is alert oriented x3. Speech rate and content are appropriate. Affect is appropriate. Skin without open ulcers as visualized. 2+Texture and turgor.. scar from his pectus excavatum surgery on his mid chest is noted. He does have quite an inverted sternum. Objective Imaging CT scan - abdomen: My impression: Distended stomach and small bowel. Colon is not distended. Labs Result Diagrams: 03/02/21 10:00 03/02/21 10:00 Labs: Laboratory Results - last 24 hr 03/02/21 03/02/21 03/02/21 10:00 10:00 10:00 WBC 14.8 H RBC 5.22 Hgb 16.6 Hct 48.2 MCV 92.3 MCH 31.8 MCHC 34.5 RDW 13.6 Plt Count 213 Neut % (Auto) 83.2 H Lymph % (Auto) 11.7 L [place] % (Auto) 4.4 Eos % (Auto) 0.3 L Baso % (Auto) 0.4 Neut # (Auto) 6[address] H Lymph # (Auto) 1700 [place] # (Auto) 600 Eos # (Auto) 0 Baso # (Auto) 100 PT 11.2 INR 1.0 APTT 32 Sodium 140 Potassium 3.9 Chloride 106 Carbon Dioxide 27 BUN 17 Creatinine 0.82 Estimated GFR > 60.0 BUN/Creatinine Ratio 20.7 Glucose 165 H Calcium 9.6 Total Bilirubin 0.7 AST 21 ALT 15 Alkaline Phosphatase 79 Total Creatine Kinase 36 L CK-MB (CK-2) TNP CK-MB (CK-2) Rel Index TNP Troponin I < 0.012 Total Protein 6.9 Albumin 4.2 Globulin 2.7 Albumin/Globulin Ratio 1.6 Lipase 93 SARS-CoV-2 (PCR) 03/02/21 12:57 WBC RBC Hgb Hct MCV MCH MCHC RDW Plt Count Neut % (Auto) Lymph % (Auto) [place] % (Auto) Eos % (Auto) Baso % (Auto) Neut # (Auto) Lymph # (Auto) [place] # (Auto) Eos # (Auto) Baso # (Auto) PT INR APTT Sodium Potassium Chloride Carbon Dioxide BUN Creatinine Estimated GFR BUN/Creatinine Ratio Glucose Calcium Total Bilirubin AST ALT Alkaline Phosphatase Total Creatine Kinase CK-MB (CK-2) CK-MB (CK-2) Rel Index Troponin I Total Protein Albumin Globulin Albumin/Globulin Ratio Lipase SARS-CoV-2 (PCR) Negative Assessment & Plan Assessment and plan (1) Partial small bowel obstruction: Status: Acute (2) COPD (chronic obstructive pulmonary disease): Status: Chronic (3) History of diverticulosis: Status: Chronic (4) Anxiety: Status: Chronic (5) Hypertension: Status: Chronic Assessment & Plan narrative: Patient with multiple medical problems who appears to have a small-bowel obstruction. Cause is unclear. He has had no prior abdominal operations that is still likely to be caused by scar. He has extensive diverticulosis without diverticulitis at this time but may have had problems in the past the resultant scar formation. Plan to place an NG is his stomach is quite distended and then give him a Gastrografin challenge. Resuscitate with fluids. Provide him with his meds for his depression/hypertension/elevated lipids. Quality VTE Deep Vein Thrombosis/Pulmonary Embolism Present on Admission: No
[2021-03-02] MEDS: LACTATED RINGERS 1,000 ML 150 ML IV ×2 (16:15→23:18)
--- NOTE | 2021-03-02 16:54 | DI.RAD.S_ITS ---
PROCEDURE: XR CHEST 1V INDICATIONS: verify placement TECHNIQUE: One view of the chest was acquired. COMPARISON: [facility], CR, XR CHEST 1V, 03/02/2021, 10:02. FINDINGS: Surgical changes and devices: Nasogastric tube is present. The tip is in the stomach and the side hole is just below the level of the diaphragm, probably near the GE junction. Lungs and pleura: The lungs are hyperlucent but clear. No pneumothorax or pleural effusion. Mediastinum: Mediastinal contours appear normal. Heart size is normal. Bones and chest wall: No suspicious bony lesions. Overlying soft tissues appear unremarkable. IMPRESSION: 1. Placement of nasogastric tube with the distal end in the proximal stomach. This could be further inserted for more optimal placement, although this is probably adequate for decompression. Dictated by: Betsy Daniel M.D. on 03/02/2021 at 17:24 Approved by: Betsy Daniel M.D. on 03/02/2021 at 17:29
[2021-03-03] VITALS (11 sets, daily range): BP systolic 124–149; BP diastolic 66–91; PULSE 71–97; RESP 16–20; TEMP 36.1–37.3; O2SAT 94–98
--- NOTE | 2021-03-03 | DI.RAD.S_ITS ---
PROCEDURE: XR GASTROGRAFIN CHALLENGE COMPARISON: [facility], CT, CT ABDOMEN PELVIS WO CON, 03/02/2021, 11:31. INDICATIONS: sbo diagnostic/therapeutic FINDINGS: Small bowel is diffusely distended up to 3.7 cm. No contrast in the distal small bowel or colon. There is excreted contrast noted in the urinary bladder from recent CT exam. No progression on the 4 hour film IMPRESSION: Persistent small bowel obstruction Approved by: Saad Fiore M.D. on 03/03/2021 at 12:05
[2021-03-03] MEDS: LACTATED RINGERS 1,000 ML 150 ML IV ×2 (06:21→20:26)
[2021-03-03 07:37] LABS: Add Manual Diff / Slide Review NO; Basophils Absolute Auto 100 /uL (0-100); Basophils Percent Auto 0.7 % (0-2); Eosinophils Absolute Auto 100 /uL (0-450); Eosinophils Percent Auto 0.5 % (2-4); Hematocrit 45.6 % (41-53); Hemoglobin 15.1 g/dL (13.5-17.5); Lymphocytes Absolute Auto 1700 /uL (1100-4500); Lymphocytes Percent Auto 15.5 % (25-40); Mean Corpuscular HGB Conc 33.2 % (30-36); Mean Corpuscular Volume 93.4 fL (80-100); Monocytes Absolute Auto 900 /uL (0-900); Monocytes Percent Auto 8.4 % (3-14); Neutrophils Absolute Auto 8300 /uL (1500-7000); Neutrophils Percent Auto 74.9 % (50-75); Platelet Count 165 X10^3/uL (150-400); Red Blood Cell Count 4.89 X10^6/uL (4.5-5.9); Red Cell Distribution Width 13.5 % (11.6-14.8)
[2021-03-03 07:49] LABS: BUN Creatinine Ratio 19.4 (6-22); Blood Urea Nitrogen 14 mg/dL (9-20); Calcium 8.8 mg/dL (8.4-10.2); Carbon Dioxide 29 mmol/L (22-32); Chloride 107 mmol/L (98-107); Estimated Glomerular Filt Rate > 60.0 mL/min (>60); Glucose 119 mg/dL (80-110); HEMOLYSIS < 15 (0-50); Potassium 4.1 mmol/L (3.4-5.1); Sodium 140 mmol/L (137-145)
[2021-03-03] MEDS: FAMOTIDINE 20 MG/2 ML VIAL 40 MG IV (08:56)
--- NOTE | 2021-03-03 13:16 | CM.DANOTE ---
Addendum entered by Antionette Kendrick LPN 03/03/21 13:35: Payer: [facility] Admission status: INPT: confirmed by UR RN Original Note: Discharge Planning/Care Management DCP: assessment: case received, EMR reviewed, ER RESIDENTIAL SUPPORT WORKER note from Lata Morin of yesterday is noted/see for details. Met now with pt. Introduced self and role. Pt is an 80 year old male who admitted yesterday afternoon to care of [facility]: Dr. Owens. NGT is in place and draining dark material. Pt says he is waiting for Dr. Owens to talk further with him about his test results and the POC going forward. Pt's spouse Arua roomed in overnight. Pt confirmed that their son Luis Eason/Hakeem came up earlier today and that Aura is now in his care. Luis's contact number: [phone] is posted on the room white board. Assured pt that the DCP team would be following up as his care proceeded to assist with d/c issues and options. He expressed thankfulness for same. CM Discharge Assessment Start: 03/03/21 13:14 Freq: Status: Active Protocol: Document 03/03/21 13:14 ITV (Rec: 03/03/21 13:15 ITV [id number]) Discharge Planning Assessment Advance Directives? No History Provided By Patient,Medical Record Prior Living Arrangements House Household Members spouse Is patient alert and oriented? Yes Caregiver for Another Yes: spouse, dementia Review Status In Process
--- NOTE | 2021-03-03 18:53 | PM.PN.1 ---
Subjective Subjective Interval history: No bowel function yet this morning. This evening patient has had multiple bowel movements. Feels much better. Exam Vital Signs (past 8 hours): - 03/03/21 12:05 03/03/21 15:55 03/03/21 16:59 Temperature 98.5 F 97.6 F Pulse Rate 97 H 86 Respiratory Rate 16 20 Blood Pressure 134/76 148/91 H Pulse Oximetry 95 95 96 Oxygen Delivery Method Room Air Oxygen Flow Rate 0 Narrative Exam Narrative: Little confused this evening. He had some blood in his NG this morning. That seems to have resolved and we pulled the NG this evening after x-rays were performed with a Gastrografin challenge. He has had multiple large bowel movements. Abdomen is mildly distended but very soft and not tender Objective Labs Result Diagrams: 03/03/21 07:25 03/03/21 07:25 Labs: Laboratory Results - last 24 hr 03/03/21 03/03/21 07:25 07:25 WBC 11.0 RBC 4.89 Hgb 15.1 Hct 45.6 MCV 93.4 MCH 31.0 MCHC 33.2 RDW 13.5 Plt Count 165 Neut % (Auto) 74.9 Lymph % (Auto) 15.5 L Stanley % (Auto) 8.4 Eos % (Auto) 0.5 L Baso % (Auto) 0.7 Neut # (Auto) 8300 H Lymph # (Auto) 1700 Stanley # (Auto) 900 Eos # (Auto) 100 Baso # (Auto) 100 Sodium 140 Potassium 4.1 Chloride 107 Carbon Dioxide 29 BUN 14 Creatinine 0.72 Estimated GFR > 60.0 BUN/Creatinine Ratio 19.4 Glucose 119 H Calcium 8.8 Magnesium 2.0 PFSH Medical History Bronchitis Colitis COPD (chronic obstructive pulmonary disease) Diverticular disease Pancreatitis Vision disorder Surgical History Anesthesia Pectus excavatum (~1954) Family History Father No problems noted. Mother Dementia Sister COPD (chronic obstructive pulmonary disease) Grandfather History of heart disease Hyperlipidemia Hypertension Grandfather Alcoholic Social History household members: spouse Smoking Status: Former smoker alcohol intake: former Assessment & Plan Assessment and plan (1) Partial small bowel obstruction: Status: Acute Assessment & Plan narrative: Patient appears to have opened up. His abdomen is soft this afternoon. Mildly distended. Will remove the NG in keep NPO for now. X-rays early in the morning. Can probably advance diet and discharge in the near future. I suspect his confusion is related to his age and being in the strange location. I expect this to be transient. Quality VTE Deep Vein Thrombosis/Pulmonary Embolism Present on Admission: No
[2021-03-04] MEDS: LACTATED RINGERS 1,000 ML 150 ML IV (03:52)
[2021-03-04 06:00] VITALS: BP 129/67; PULSE 61; RESP 16; TEMP 36.2; O2SAT 96
--- NOTE | 2021-03-04 06:34 | DI.RAD.S_ITS ---
PROCEDURE: XR ABDOMEN 1V INDICATIONS: f/u sbo TECHNIQUE: One view of the abdomen acquired. COMPARISON: [facility], CT, CT ABDOMEN PELVIS WO CON, 03/02/2021, 11:31. FINDINGS: Surgical changes and devices: None. Bowel: Small bowel loops are mildly dilated measuring up to 3 cm in diameter. There is abundant small bowel gas and colonic gas. Oral contrast is seen in the colon loops. Soft tissues: No suspicious abdominal calcifications. Visualized solid organ contours appear normal in size. Bones: No suspicious bony lesions. IMPRESSION: The radiographic findings most compatible with adynamic ileus. Partial small bowel obstruction cannot be excluded. Dictated by: Damion Stafford M.D. on 03/04/2021 at 7:19 Approved by: Damion Stafford M.D. on 03/04/2021 at 7:21
[2021-03-04 08:00] VITALS: BP 148/71; PULSE 67; RESP 18; TEMP 36.6; O2SAT 99
[2021-03-04] MEDS: LOSARTAN 50 MG TABLET 100 MG PO (09:55)
[2021-03-04] MEDS: AMLODIPINE 5 MG TABLET PO (09:55)
[2021-03-04] MEDS: VENLAFAXINE ER 37.5 MG CAP PO (09:55)
[2021-03-04] MEDS: FAMOTIDINE 20 MG/2 ML VIAL IV (09:55)
--- NOTE | 2021-03-04 11:27 | PM.DS.1 ---
History of Present Illness History of Present Illness Date Patient Seen: 03/04/21 Time Patient Seen: 11:28 Chief complaint: hx of pancreatitis, abdominal pain Narrative: small bowel obstruction vs ileus that has resolved, gastrografin study shows contrast in colon and patient is having BMs Discharge Providers Provider Date of admission: 03/02/21 13:27 Discharge Date: 03/04/21 Primary care physician: Marcella London PA-C Consults: 03/02/21 13:33 Consult to CANE WEIGHER HELPER - Granulating Machine Operator Routine Comment: 03/02/21 15:35 Consult to Discharge Planning Routine Comment: Discharge provider: Susy Britt MD Summary Hospital Course Discharge Diagnosis: ileus Hospital Course: resolution with bowel rest, etiology unclear Status at Discharge Cognitive/behavioral status at discharge: at baseline, oriented Functional status at discharge: independent ambulation Overall status at discharge: patient is back to baseline Time Spent with Patient Time spent: Less than 30 minutes Exam Vital Signs (past 8 hours): - 03/04/21 06:00 03/04/21 08:00 Temperature 97.2 F L 97.9 F Pulse Rate 61 67 Respiratory Rate 16 18 Blood Pressure 129/67 148/71 H Pulse Oximetry 96 99 Oxygen Delivery Method Room Air Oxygen Flow Rate 0 Const General: cooperative and comfortable Nutritional Appearance: average body habitus HENMT Head: normal to inspection Mouth: oral mucosae normal Eyes Sclera: sclerae normal Neck Neck: trachea midline Chest Other: pectus excavatum Resp Effort & Inspection: normal respiratory effort and able to speak in complete sentences Cardio Rate: regular rate Rhythm: regular rhythm GI Inspection: normal to inspection Palpation: soft Skin General: no rashes or lesions noted Neuro General: patient alert and patient oriented x3 Extrem General: full ROM Psych Appearance: grossly normal Judgment: judgment good Objective Labs Result Diagrams: 03/03/21 07:25 03/03/21 07:25 [facility] Medical History Bronchitis Colitis COPD (chronic obstructive pulmonary disease) Diverticular disease Pancreatitis Vision disorder Surgical History Anesthesia Pectus excavatum (~1954) Family History Father No problems noted. Mother Dementia Sister COPD (chronic obstructive pulmonary disease) Grandfather History of heart disease Hyperlipidemia Hypertension Grandfather Alcoholic Social History household members: spouse Smoking Status: Former smoker alcohol intake: former Discharge Assessment & Plan Assessment and Plan Assessment: Resolved SBO vs ileus. Plan of Treatment: Discharge home on bland diet. follow up PCP prn Discharge Plan Discharge Plan Patient Disposition: Home Provider Discharge Comment: discharge this afternoon is lunch goes ok Discharge orders & Medications Prescriptions: Continued losartan 100 mg tablet 100 mg PO DAILY RF: 0 pravastatin 20 mg tablet 20 mg PO DAILY RF: 0 amlodipine 5 mg tablet 10 mg PO DAILY RF: 0 venlafaxine 37.5 mg Tablet Extended Release 24hr 37.5 mg PO DAILY RF: 0 Follow up/Referrals: Marcella London PA-C [Primary Care Provider] - Discharge Data Primary Care Provider: Marcella London Quality VTE Deep Vein Thrombosis/Pulmonary Embolism Present on Admission: No
[2021-03-04 12:00] VITALS: BP 140/80; PULSE 70; RESP 18; TEMP 36.8; O2SAT 98
--- NOTE | 2021-03-04 12:14 | CM.DPC ---
DCP Cont: Patient has discharge orders for today. Son, Luis, was at bedside, and patient's , Aura, who is very pleasant. She has history of dementia. Asked patient if he had any needs, stated, he didn't. Gave him a copy of his IMM form. Resources had been given to family from [facility] Guido in the ER already. P: Patient is to be discharged home today. Jo Valderrama RN/Entry Level
--- NOTE | 2021-03-04 13:28 | PC.NURSE ---
Addendum entered by Demetrius Murphy R.N. 03/04/21 14:46: Discharge instructions and home care handouts reviewed with patient, his and his son. They state understanding and have no further questions or concerns at this time. IV dc'd intact. Patient escorted out via wheelchair with all his belongings to home with his family. Original Note: Patient started by drinking clear liquids and jello prior to lunch as order to advance diet as tolerated placed by MD. Patient tolerated that well and then had about 25% of his lunch. He tolerated lunch but did not want to over do it. Denies abdominal pain, n/v or other complaint, eager for discharge to home with his and son.
== END 2021-03-04 14:47 | disposition home or self-care (01) | DRG 390 ==
LOC: ED 13:26 → AC 13:40
PROVIDERS: Admitting Provider Specialist; Emergency Provider Emergency Medicine; PCP Physician Assistant; Referring Provider Emergency Medicine; Visit Provider Specialist
DX: K56.7 Ileus, unspecified (principal); K56.600 Partial intestinal obstruction, unspecified as to cause; I10 Essential (primary) hypertension; F32.9 Major depressive disorder, single episode, unspecified; J44.9 Chronic obstructive pulmonary disease, unspecified; E78.5 Hyperlipidemia, unspecified; F41.9 Anxiety disorder, unspecified; Z87.891 Personal history of nicotine dependence; Z20.822 Contact with and (suspected) exposure to COVID-19
CPT/HCPCS: 36415; 71045; 74018; 74176; 80048; 80053; 82550; 83690; 83735; 84484; 85025; 85610; 85730; 87635; 93005; 93010; 96360; 96361; 99221; 99231; 99238; 99284; C9803

== ENCOUNTER 2021-07-27 21:07 | Emergency (ER) | payer OTHER, SELFPAY ==
[2021-03-02 14:26] VITALS: BMI 22.7
[2021-07-27 21:20] VITALS: BP 158/76; PULSE 89; RESP 17; TEMP 36.6; O2SAT 97; BMI 22.2
--- NOTE | 2021-07-27 21:37 | ED.ABDPAIN ---
HPI - Abdominal Pain General Chief Complaint: Abdominal Pain Stated Complaint: abdominal pain Time Seen by Provider: 07/27/21 21:29 Source: patient Mode of arrival: Ambulatory History of Present Illness HPI narrative: Patient is a 81-year-old male with history of hypertension, hyperlipidemia who presents with abdominal pain. Both he and his are poor historians. Difficult to tell how long it is going on for. He apparently has had an obstruction the past. It appears in February 2021 he was admitted for partial obstruction resolved without intervention. He denies any nausea vomiting or chest pain. He is unsure if he has had any fever or chills. He appears comfortable. Related Data Home Medications Medication Instructions Recorded Confirmed amlodipine 5 mg tablet 10 mg PO DAILY 12/29/18 03/02/21 losartan 100 mg tablet 100 mg PO DAILY 12/29/18 03/02/21 pravastatin 20 mg tablet 20 mg PO DAILY 12/29/18 03/02/21 venlafaxine 37.5 mg 37.5 mg PO DAILY 03/02/21 03/02/21 tablet,extended release 24 hr Allergies Allergy/AdvReac Type Severity Reaction Status Date / Time iodine [IODINE] Allergy Intermediate NAUSEA/VOMI Verified 07/27/21 21:24 TING hydrocodone [HYDROCODONE] AdvReac Intermediate ITCHING Verified 07/27/21 21:24 Review of Systems Review of Systems Narrative: GENERAL: Denies chills, fatigue, malaise, fever, sweats, travel HEENT: Denies sinus pain, ear pain, sore throat, difficulty swallowing, neck pain RESPIRATORY: Denies dyspnea, cough, wheezing, hemoptysis, sputum. CARDIOVASCULAR: Denies chest pain, palpitations, orthopnea, edema GASTROINTESTINAL: See HPI : Denies dysuria, frequency, incontinence, hematuria, urinary retention, flank pain. MUSCULOSKELETAL: Denies weakness, joint pain, or bony pain SKIN: No rash, no erythema, no pruritus NEUROLOGIC: Denies weakness, dizziness, headache, numbness, change in speech, confusion PSYCHIATRIC: No concerning psychosocial issues. 12 point review of systems is negative except for those stated above and HPI Patient History Medical History (Updated 07/28/21 @ 03:01 by Cristina Ramos DO) Bronchitis Colitis COPD (chronic obstructive pulmonary disease) Diverticular disease Pancreatitis Vision disorder Surgical History Anesthesia Pectus excavatum (~1954) Family History Father No problems noted. Mother Dementia Sister COPD (chronic obstructive pulmonary disease) Grandfather History of heart disease Hyperlipidemia Hypertension Grandfather Alcoholic Social History household members: spouse Smoking Status: Former smoker alcohol intake: former Smoking Status: Former smoker alcohol intake frequency: 0-2 drinks per day Substance Use Type: marijuana Exam Initial Vital Signs Initial Vital Signs: Vital Signs Temperature 98 F 07/27/21 21:20 Pulse Rate 89 07/27/21 21:20 Respiratory Rate 17 07/27/21 21:20 Blood Pressure 158/76 H 07/27/21 21:20 Pulse Oximetry 97 07/27/21 21:20 GENERAL: Alert very nice 81-year-old male in no acute distress. HEENT: Head atraumatic,EOMI, pupils reactive, face symmetric, moist mucous membranes CARDIOVASCULAR: Regular rate and rhythm without murmurs, rubs or gallops. RESPIRATORY: Breath sounds equal bilaterally, no wheezes rales or rhonchi. ABDOMEN: Soft, epigastric and right upper quadrant no guarding or rebound soft no distention normal bowel sounds EXTREMITIES: Normal range of motion, no clubbing or edema. Neurovascularly intact NEUROLOGICAL: Alert and oriented x4.Normal gait and speech. SKIN: Warm, dry, no laceration, no petechiae, no rashes or lesions. Course Orders Ordered: ED Orders 07/27/21 21:19 EKG-12 Lead Stat 07/27/21 21:30 Complete Blood Count AUTO DIFF Stat Comprehensive Metabolic Panel Stat Lactate (Lactic Acid) Stat Lipase Stat Troponin & CK Cardiac Panel Stat 07/27/21 21:45 CT abdomen pelvis w con Stat 07/27/21 22:09 US abdomen limited Stat 07/27/21 22:13 EKG-12 Lead Stat 07/28/21 01:19 MRCP [MR abdomen wo con] Stat Procalcitonin Stat 07/28/21 01:25 COVID19 -Nasal swab/Pre-Proc Stat 07/28/21 01:35 Lactate (Lactic Acid) Stat 07/28/21 01:40 Blood Culture Stat Lactated Ringer's (Lactated Ringers) 1,000 mls @ 125 mls/hr IV CONT RAMIREZ Last Admin: 07/27/21 23:32 Dose: 125 mls/hr Documented by: KASHMIR Morphine Sulfate (Morphine 2 Mg/Ml Inj) 2 mg IV Q4HR PRN PRN Reason: Pain, Moderate (4-6) Last Admin: 07/28/21 01:14 Dose: 2 mg Documented by: KASHMIR Discontinued Medications Diphenhydramine HCl (Diphenhydramine 50 Mg/Ml Vial) 25 mg IV NOW ONE Stop: 07/27/21 21:49 Last Admin: 07/27/21 21:52 Dose: 25 mg Documented by: EDGARD Sodium Chloride (Normal Saline 0.9%) 1,000 mls @ 1,000 mls/hr IV BOLUS ONE Stop: 07/27/21 23:23 Last Infusion: 07/28/21 01:14 Dose: 0 mls/hr Documented by: Admin: 07/27/21 23:31 Dose: 1,000 mls/hr Documented by: KASHMIR Ceftriaxone Sodium 2,000 mg/ (Sodium Chloride) 100 mls @ 200 mls/hr IV NOW ONE Stop: 07/28/21 02:06 Last Infusion: 07/28/21 03:12 Dose: 0 mls/hr Documented by: Admin: 07/28/21 02:35 Dose: 200 mls/hr Documented by: HANNAH Metronidazole (Flagyl) 500 mg in 100 mls @ 100 mls/hr IV NOW ONE Stop: 07/28/21 03:04 Last Infusion: 07/28/21 04:14 Dose: 0 mls/hr Documented by: Admin: 07/28/21 02:37 Dose: 100 mls/hr Documented by: HANNAH Methylprednisolone (Methylprednisolone 125 Mg/2 Ml Vial) 125 mg IV NOW ONE Stop: 07/27/21 21:49 Last Admin: 07/27/21 21:53 Dose: 125 mg Documented by: EDGARD Morphine Sulfate (Morphine 2 Mg/Ml Inj) 2 mg IV NOW ONE Stop: 07/28/21 04:09 Last Admin: 07/28/21 04:18 Dose: 2 mg Documented by: MONIQUE Vital Signs Vital signs: Vital Signs - 8 hr 07/27/21 21:20 07/27/21 22:27 07/27/21 22:30 Temperature 98 F Pulse Rate 89 89 83 Respiratory Rate 17 Blood Pressure 158/76 H Pulse Oximetry 97 99 99 07/27/21 23:00 07/27/21 23:30 07/28/21 00:00 Temperature Pulse Rate 77 84 88 Respiratory Rate Blood Pressure Pulse Oximetry 97 98 97 07/28/21 00:16 07/28/21 00:30 07/28/21 01:00 Temperature Pulse Rate 89 85 86 Respiratory Rate Blood Pressure 172/74 H 155/78 H Pulse Oximetry 97 97 98 07/28/21 01:01 07/28/21 01:09 Temperature 100 F H Pulse Rate 86 Respiratory Rate Blood Pressure 144/67 H Pulse Oximetry 97 MDM - Abdominal Pain Lab Data Result diagrams: 07/27/21 21:30 07/27/21 21:30 Labs: Lab Results 07/27/21 07/27/21 07/27/21 Range/Units 21:30 21:30 21:30 WBC 12.2 H (4.5-11.0) X10^3/uL RBC 4.80 (4.5-5.9) X10^6/uL Hgb 14.8 (13.5-17.5) g/dL Hct 43.7 (41-53) % MCV 91.1 (80-100) fL MCH 30.9 (26-34) PG MCHC 33.9 (30-36) % RDW 13.2 (11.6-14.8) % Plt Count 171 (150-400) X10^3/uL Neut % (Auto) 85.8 H (50-75) % Lymph % (Auto) 7.2 L (25-40) % [place] % (Auto) 5.9 (3-14) % Eos % (Auto) 0.4 L (2-4) % Baso % (Auto) 0.7 (0-2) % Neut # (Auto) 83251 H (6949-8140) /uL Lymph # (Auto) 900 L (9805-8825) /uL [place] # (Auto) 700 (0-900) /uL Eos # (Auto) 0 (0-450) /uL Baso # (Auto) 100 (0-100) /uL Sodium 141 (137-145) mmol/L Potassium 4.6 (3.4-5.1) mmol/L Chloride 107 (98-107) mmol/L Carbon Dioxide 29 (22-32) mmol/L BUN 18 (9-20) mg/dL Creatinine 0.78 (0.66-1.25) mg/dL Estimated GFR > 60.0 (>60) mL/min BUN/Creatinine Ratio 23.1 H (6-22) Glucose 138 H (80-110) mg/dL Lactate (0.7-2.1) mmol/L Calcium 9.1 (8.4-10.2) mg/dL Total Bilirubin 1.1 (0.2-1.3) mg/dL AST 314 H (17-59) IU/L ALT 133 H (<50) IU/L Alkaline Phosphatase 67 (38-126) U/L Total Creatine Kinase 66 (55-170) U/L CK-MB (CK-2) TNP CK-MB (CK-2) Rel Index TNP Troponin I 0.025 (0.01-0.034) ng/mL Total Protein 7.3 (6.3-8.2) g/dL Albumin 4.5 (3.5-5.0) g/dL Globulin 2.8 (1.7-4.1) g/dL Albumin/Globulin Ratio 1.6 (1.0-2.8) Lipase 53300 H (23-300) U/L Procalcitonin (<0.5) ng/mL SARS-CoV-2 (PCR) (Negative) 07/27/21 07/27/21 07/28/21 Range/Units 21:30 21:30 01:25 WBC (4.5-11.0) X10^3/uL RBC (4.5-5.9) X10^6/uL Hgb (13.5-17.5) g/dL Hct (41-53) % MCV (80-100) fL MCH (26-34) PG MCHC (30-36) % RDW (11.6-14.8) % Plt Count (150-400) X10^3/uL Neut % (Auto) (50-75) % Lymph % (Auto) (25-40) % [place] % (Auto) (3-14) % Eos % (Auto) (2-4) % Baso % (Auto) (0-2) % Neut # (Auto) (2514-0298) /uL Lymph # (Auto) (5609-4389) /uL [place] # (Auto) (0-900) /uL Eos # (Auto) (0-450) /uL Baso # (Auto) (0-100) /uL Sodium (137-145) mmol/L Potassium (3.4-5.1) mmol/L Chloride (98-107) mmol/L Carbon Dioxide (22-32) mmol/L BUN (9-20) mg/dL Creatinine (0.66-1.25) mg/dL Estimated GFR (>60) mL/min BUN/Creatinine Ratio (6-22) Glucose (80-110) mg/dL Lactate 1.7 (0.7-2.1) mmol/L Calcium (8.4-10.2) mg/dL Total Bilirubin (0.2-1.3) mg/dL AST (17-59) IU/L ALT (<50) IU/L Alkaline Phosphatase (38-126) U/L Total Creatine Kinase (55-170) U/L CK-MB (CK-2) CK-MB (CK-2) Rel Index Troponin I (0.01-0.034) ng/mL Total Protein (6.3-8.2) g/dL Albumin (3.5-5.0) g/dL Globulin (1.7-4.1) g/dL Albumin/Globulin Ratio (1.0-2.8) Lipase (23-300) U/L Procalcitonin 0.07 (<0.5) ng/mL SARS-CoV-2 (PCR) Negative (Negative) 07/28/21 07/28/21 Range/Units 01:35 04:00 WBC (4.5-11.0) X10^3/uL RBC (4.5-5.9) X10^6/uL Hgb (13.5-17.5) g/dL Hct (41-53) % MCV (80-100) fL MCH (26-34) PG MCHC (30-36) % RDW (11.6-14.8) % Plt Count (150-400) X10^3/uL Neut % (Auto) (50-75) % Lymph % (Auto) (25-40) % [place] % (Auto) (3-14) % Eos % (Auto) (2-4) % Baso % (Auto) (0-2) % Neut # (Auto) (1217-2892) /uL Lymph # (Auto) (9982-4403) /uL [place] # (Auto) (0-900) /uL Eos # (Auto) (0-450) /uL Baso # (Auto) (0-100) /uL Sodium (137-145) mmol/L Potassium (3.4-5.1) mmol/L Chloride (98-107) mmol/L Carbon Dioxide (22-32) mmol/L BUN (9-20) mg/dL Creatinine (0.66-1.25) mg/dL Estimated GFR (>60) mL/min BUN/Creatinine Ratio (6-22) Glucose (80-110) mg/dL Lactate 2.4 H 1.5 (0.7-2.1) mmol/L Calcium (8.4-10.2) mg/dL Total Bilirubin (0.2-1.3) mg/dL AST (17-59) IU/L ALT (<50) IU/L Alkaline Phosphatase (38-126) U/L Total Creatine Kinase (55-170) U/L CK-MB (CK-2) CK-MB (CK-2) Rel Index Troponin I (0.01-0.034) ng/mL Total Protein (6.3-8.2) g/dL Albumin (3.5-5.0) g/dL Globulin (1.7-4.1) g/dL Albumin/Globulin Ratio (1.0-2.8) Lipase (23-300) U/L Procalcitonin (<0.5) ng/mL SARS-CoV-2 (PCR) (Negative) Imaging Data US - abdomen: Radiologist's Impression: PROCEDURE:? US ABDOMEN LIMITED ? INDICATIONS:? RUQ PAIN ? TECHNIQUE:? Real-time scanning was performed of the abdominal and retroperitoneal organs, with image documentation.? ? COMPARISON:? None. ? FINDINGS:? ? Liver:? Liver is normal in size and homogeneous in echotexture.? ? Gallbladder:? Gallbladder is distended with small stones and sludge material seen in dependent portion of gallbladder lumen.? No gallbladder wall thickening or pericholecystic fluid.? Positive sonographic Diana sign is noted during the study. ? Biliary ducts:? Intrahepatic bile ducts are grossly non-dilated.? Extrahepatic bile duct caliber measures 10.9 mm.? Normal is 6-7 mm or less in diameter, or 10 mm or less post-cholecystectomy.? ? Pancreas:? Visualized portions of the pancreas are sonographically normal.? Prominent pancreatic duct is seen measures up to 4.1 mm in diameter. ? IMPRESSION:? 1. Cholelithiasis and distended gallbladder.? Positive sonographic Diana sign concerning for acute cholecystitis. 2. Dilatation of common bile duct and pancreatic duct.? CT of abdomen and pelvis from the same day also shows mild intrahepatic biliary ductal dilatation.? No obvious choledocholithiasis is seen.? ? Dictated by: Vince Lemons M.D. on 07/27/2021 at 22:59 ?? CT scan - abdomen/pelvis: Radiologist's Impression: PROCEDURE:? CT ABDOMEN PELVIS W CON ? INDICATIONS:? pain epigastric ? TECHNIQUE:? After the administration of intravenous contrast, axial sections acquired from the lung bases to the pubic symphysis.? Coronal and sagittal reformats were performed.? For radiation dose reduction, the following was used:? automated exposure control, adjustment of mA and/or kV according to patient size.? ? COMPARISON:? [facility], CT, CT ABDOMEN PELVIS WO CON, 03/02/2021, 11:31.? [facility], CT, ABDOMEN/PELVIS WITH CONTRAST, 07/24/2007, 8:55. ? FINDINGS:? Image quality:? Excellent.? ? Lung bases:? Bibasilar dependent atelectasis and scarring is seen. Heart:? Heart size is enlarged, no pericardial effusion. ? ABDOMEN: Liver:? Well-circumscribed hypodense areas involving anterior segment of right hepatic lobe and measures 8 mm in size series 2, image 18.? Well-circumscribed hypodensity is also seen involving anterior periphery of left hepatic lobe and measures 5 mm in size series 2, image 17. Gallbladder:? Gallbladder is significantly distended.? No definite calcified gallstone is seen. Biliary ducts:? Mild intrahepatic biliary ductal dilatation is seen.? Common bile duct measures up to 8 mm in diameter and is in the upper limits of normal for patient's age. Pancreas:? No discrete pancreatic lesion is seen.? Mildly prominent pancreatic duct in pancreatic head and neck region is seen measures up to 7 mm in diameter.? No peripancreatic fluid collection. ? Spleen:? Spleen is normal in size.? Hypodense area involving inferior aspect of spleen measures 4 x 3 cm in size and may represent splenic cyst..? ? Adrenal Glands:? Unremarkable.? ? Kidneys and Ureters:? Bilateral peripelvic renal cysts are seen.? No renal stone or hydronephrosis.? No hydroureter.? No perinephric fat stranding.? Stomach and Bowel:? There is no bowel obstruction.? Appendix is visualized and is within normal limits.? No gross abnormal bowel wall thickening or mesenteric fat stranding.? Extensive sigmoid diverticulosis is seen, no pericolonic fat stranding or colonic wall thickening.? No abscess collection. Peritoneum:? No abnormal intraperitoneal fluid.? No free air.? ? Ventral Wall: ? No hernias.? Abdominal Nodes:? No retroperitoneal or mesenteric adenopathy by size criteria.? Vessels:? Aorta and inferior vena cava are normal in size.? ? PELVIS: Pelvic Organs:? Unremarkable.? ? Bladder:? Unremarkable.? ? Pelvic Nodes: No enlarged lymph nodes.? Miscellaneous: No hernias are seen. ? ? ? Bones:? No suspicious bony lesion.? No acute vertebral body compression fracture.? Degenerative disc disease at L2-3 and L3-4 levels are seen with grade 1 retrolisthesis at L2-3 and L3-4 levels. ? ? IMPRESSION:? 1. Markedly distended gallbladder.? Mild intrahepatic biliary ductal dilatation and borderline distended common bile duct.? Prominent pancreatic duct at the level of pancreatic head and neck level.? No calcified gallstone or choledocholithiasis is seen.? Consider ERCP or MRCP for further evaluation of this area if clinically indicated. 2. Several subcentimeter hypodensities seen in liver parenchyma and may represent benign process such as hepatic cysts.? Possible cyst in inferior aspect of spleen as above not significantly changed from 03/02/2021 study. 3. No bowel obstruction or abnormal bowel wall thickening.? Normal appendix.? Colonic diverticulosis without evidence of acute diverticulitis.? No free fluid or free air. 4. Bilateral peripelvic renal cysts.? No hydronephrosis or hydroureter.? Normal appearing urinary bladder.? ? ? Dictated by: Vince Lemons M.D. on 07/27/2021 at 22:32 ? ? Approved by: Vince Lemons M.D. on 07/27/2021 at 22:40 ? ECG Data Interpretation: Normal sinus rhythm rate 71 DE interval 188 QRS [address] changes MDM Narrative Medical decision making narrative: The patient has some mild dumb and but overall appears comfortable abdomen is mildly tender but no significant distention. Blood work is reveals elevated liver enzymes and lipase of 25,000. CT and ultrasound do show that he has cholelithiasis with minimally dilated common bile duct. Concerns for gallstone pancreatitis. Patient started shaking temperature [place] to 100. Repeat lactate increased from 1.7-2.4, blood cultures were drawn and pending. 2330 Dr. Wallace agrees with need for transfer for ERCP 2:00am , hospitalist has been updated patient's symptoms test results, at this time with new fever agrees with starting antibiotics Rocephin and Flagyl. of patient has severe dementia patient is her caregiver. We were finally able to get hold of children who are coming to help care for her. Discharge Plan Departure Patient Disposition: Xfer Acute [facility] Clinical Impression: Acute gallstone pancreatitis Prescriptions: No Action losartan 100 mg tablet 100 mg PO DAILY 0RF pravastatin 20 mg tablet 20 mg PO DAILY 0RF amlodipine 5 mg tablet 10 mg PO DAILY 0RF venlafaxine 37.5 mg Tablet Extended Release 24hr 37.5 mg PO DAILY 0RF Referrals: Marcella London PA-C [Primary Care Provider] -
[2021-07-27 21:41] LABS: Add Manual Diff / Slide Review NO; Basophils Absolute Auto 100 /uL (0-100); Basophils Percent Auto 0.7 % (0-2); Eosinophils Absolute Auto 0 /uL (0-450); Eosinophils Percent Auto 0.4 % (2-4); Hematocrit 43.7 % (41-53); Hemoglobin 14.8 g/dL (13.5-17.5); Lymphocytes Absolute Auto 900 /uL (1100-4500); Lymphocytes Percent Auto 7.2 % (25-40); Mean Corpuscular HGB Conc 33.9 % (30-36); Mean Corpuscular Hemoglobin 30.9 PG (26-34); Mean Corpuscular Volume 91.1 fL (80-100); Monocytes Absolute Auto 700 /uL (0-900); Monocytes Percent Auto 5.9 % (3-14); Neutrophils Absolute Auto 10500 /uL (1500-7000); Neutrophils Percent Auto 85.8 % (50-75); Platelet Count 171 X10^3/uL (150-400); Red Cell Distribution Width 13.2 % (11.6-14.8); White Blood Cell Count 12.2 X10^3/uL (4.5-11.0)
--- NOTE | 2021-07-27 21:45 | DI.CT.S_ITS ---
PROCEDURE: CT ABDOMEN PELVIS W CON INDICATIONS: pain epigastric TECHNIQUE: After the administration of intravenous contrast, axial sections acquired from the lung bases to the pubic symphysis. Coronal and sagittal reformats were performed. For radiation dose reduction, the following was used: automated exposure control, adjustment of mA and/or kV according to patient size. COMPARISON: [facility], CT, CT ABDOMEN PELVIS WO CON, 03/02/2021, 11:31. [facility], CT, ABDOMEN/PELVIS WITH CONTRAST, 07/24/2007, 8:55. FINDINGS: Image quality: Excellent. Lung bases: Bibasilar dependent atelectasis and scarring is seen. Heart: Heart size is enlarged, no pericardial effusion. ABDOMEN: Liver: Well-circumscribed hypodense areas involving anterior segment of right hepatic lobe and measures 8 mm in size series 2, image 18. Well-circumscribed hypodensity is also seen involving anterior periphery of left hepatic lobe and measures 5 mm in size series 2, image 17. Gallbladder: Gallbladder is significantly distended. No definite calcified gallstone is seen. Biliary ducts: Mild intrahepatic biliary ductal dilatation is seen. Common bile duct measures up to 8 mm in diameter and is in the upper limits of normal for patient's age. Pancreas: No discrete pancreatic lesion is seen. Mildly prominent pancreatic duct in pancreatic head and neck region is seen measures up to 7 mm in diameter. No peripancreatic fluid collection. Spleen: Spleen is normal in size. Hypodense area involving inferior aspect of spleen measures 4 x 3 cm in size and may represent splenic cyst.. Adrenal Glands: Unremarkable. Kidneys and Ureters: Bilateral peripelvic renal cysts are seen. No renal stone or hydronephrosis. No hydroureter. No perinephric fat stranding. Stomach and Bowel: There is no bowel obstruction. Appendix is visualized and is within normal limits. No gross abnormal bowel wall thickening or mesenteric fat stranding. Extensive sigmoid diverticulosis is seen, no pericolonic fat stranding or colonic wall thickening. No abscess collection. Peritoneum: No abnormal intraperitoneal fluid. No free air. Ventral Wall: No hernias. Abdominal Nodes: No retroperitoneal or mesenteric adenopathy by size criteria. Vessels: Aorta and inferior vena cava are normal in size. PELVIS: Pelvic Organs: Unremarkable. Bladder: Unremarkable. Pelvic Nodes: No enlarged lymph nodes. Miscellaneous: No hernias are seen. Bones: No suspicious bony lesion. No acute vertebral body compression fracture. Degenerative disc disease at L2-3 and L3-4 levels are seen with grade 1 retrolisthesis at L2-3 and L3-4 levels. IMPRESSION: 1. Markedly distended gallbladder. Mild intrahepatic biliary ductal dilatation and borderline distended common bile duct. Prominent pancreatic duct at the level of pancreatic head and neck level. No calcified gallstone or choledocholithiasis is seen. Consider ERCP or MRCP for further evaluation of this area if clinically indicated. 2. Several subcentimeter hypodensities seen in liver parenchyma and may represent benign process such as hepatic cysts. Possible cyst in inferior aspect of spleen as above not significantly changed from 03/02/2021 study. 3. No bowel obstruction or abnormal bowel wall thickening. Normal appendix. Colonic diverticulosis without evidence of acute diverticulitis. No free fluid or free air. 4. Bilateral peripelvic renal cysts. No hydronephrosis or hydroureter. Normal appearing urinary bladder. Dictated by: Vince Lemons M.D. on 07/27/2021 at 22:32 Approved by: Vince Lemons M.D. on 07/27/2021 at 22:40
[2021-07-27 21:52] LABS: Alanine Aminotransferase 133 IU/L (<50); Albumin 4.5 g/dL (3.5-5.0); Albumin Globulin Ratio 1.6 (1.0-2.8); Alkaline Phosphatase 67 U/L (38-126); Aspartate Aminotransferase 314 IU/L (17-59); BUN Creatinine Ratio 23.1 (6-22); Bilirubin Total 1.1 mg/dL (0.2-1.3); Blood Urea Nitrogen 18 mg/dL (9-20); Calcium 9.1 mg/dL (8.4-10.2); Carbon Dioxide 29 mmol/L (22-32); Chloride 107 mmol/L (98-107); Estimated Glomerular Filt Rate > 60.0 mL/min (>60); Globulin 2.8 g/dL (1.7-4.1); Glucose 138 mg/dL (80-110); Sodium 141 mmol/L (137-145); Total Protein 7.3 g/dL (6.3-8.2)
[2021-07-27] MEDS: diphenhydrAMINE 50 MG/ML VIAL 25 MG IV (21:52)
[2021-07-27] MEDS: methylPREDNISolone 125 MG/2 ML VIAL IV (21:53)
[2021-07-27 21:58] LABS: Potassium 4.6 mmol/L (3.4-5.1)
[2021-07-27 22:08] LABS: Creatine Kinase 66 U/L (55-170)
--- NOTE | 2021-07-27 22:09 | DI.US.S_ITS ---
PROCEDURE: US ABDOMEN LIMITED INDICATIONS: RUQ PAIN TECHNIQUE: Real-time scanning was performed of the abdominal and retroperitoneal organs, with image documentation. COMPARISON: None. FINDINGS: Liver: Liver is normal in size and homogeneous in echotexture. Gallbladder: Gallbladder is distended with small stones and sludge material seen in dependent portion of gallbladder lumen. No gallbladder wall thickening or pericholecystic fluid. Positive sonographic Diana sign is noted during the study. Biliary ducts: Intrahepatic bile ducts are grossly non-dilated. Extrahepatic bile duct caliber measures 10.9 mm. Normal is 6-7 mm or less in diameter, or 10 mm or less post-cholecystectomy. Pancreas: Visualized portions of the pancreas are sonographically normal. Prominent pancreatic duct is seen measures up to 4.1 mm in diameter. IMPRESSION: 1. Cholelithiasis and distended gallbladder. Positive sonographic Diana sign concerning for acute cholecystitis. 2. Dilatation of common bile duct and pancreatic duct. CT of abdomen and pelvis from the same day also shows mild intrahepatic biliary ductal dilatation. No obvious choledocholithiasis is seen. Dictated by: Vince Lemons M.D. on 07/27/2021 at 22:59 Approved by: Vince Lemons M.D. on 07/27/2021 at 23:01
[2021-07-27 22:21] LABS: Troponin I 0.025 ng/mL (0.01-0.034)
[2021-07-27 22:27] VITALS: PULSE 89; O2SAT 99
[2021-07-27 22:30] VITALS: PULSE 83; O2SAT 99
[2021-07-27 22:32] LABS: Lipase 25641 U/L (23-300)
[2021-07-27 22:33] LABS: HEMOLYSIS 127 (0-50)
[2021-07-27 22:45] LABS: Lactate (Lactic Acid) 1.7 mmol/L (0.7-2.1)
[2021-07-27 23:00] VITALS: PULSE 77; O2SAT 97
[2021-07-27 23:30] VITALS: PULSE 84; O2SAT 98
[2021-07-27] MEDS: SODIUM CHLORIDE 0.9% 1,000 ML 1000 ML IV (23:31)
[2021-07-27] MEDS: LACTATED RINGERS 1,000 ML 125 ML IV (23:32)
[2021-07-28] VITALS (12 sets, daily range): BP systolic 138–172; BP diastolic 62–86; PULSE 83–89; TEMP 37.7; O2SAT 92–98
[2021-07-28] MEDS: MORPHINE 2 MG/ML INJ IV ×2 (01:14→04:18)
[2021-07-28 01:51] LABS: Procalcitonin 0.07 ng/mL (<0.5)
[2021-07-28 01:55] LABS: COVID19 -Nasal RAPID Negative (Negative)
[2021-07-28 02:02] LABS: Lactate (Lactic Acid) 2.4 mmol/L (0.7-2.1)
[2021-07-28] MEDS: cefTRIAXone 2,000 MG in SODIUM CHLORIDE 0.9% 100 ML 200 ML IV (02:35)
[2021-07-28] MEDS: metroNIDAZOLE 500 MG/100 ML PIGGYBACK 100 MG IV (02:37)
[2021-07-28 03:48] LABS: Reflexed Lactate in 2 Hours Y
[2021-07-28 04:18] LABS: Lactate 2HR (Lactic Acid Rflx) 1.5 mmol/L (0.7-2.1)
[2021-07-28 16:42] LABS: Acinetobacter baumannii Not Detected (Not Detect); Enterobacteriaceae species Detected (Not Detect); Enterococcus species Detected (Not Detect); KPC (carbapenem-resist gene) Not Detected (Not Detect); Listeria monocytogenes Not Detected (Not Detect); Staphylococcus species Not Detected (Not Detect); Streptococcus agalactiae (Gr B Not Detected (Not Detect); Streptococcus pneumonia Not Detected (Not Detect); Streptococcus pyogenes (Gr A) Not Detected (Not Detect); Streptococcus species Not Detected (Not Detect); Vancomycin-rest genes A/B Not Detected (Not Detect)
[2021-07-28 16:43] LABS: E. coli Not Detected (Not Detect); Enterobacter cloacae complex Detected (Not Detect)
[2021-07-28 16:45] LABS: Candida albicans Not Detected (Not Detect); Candida glabrata Not Detected (Not Detect); Candida krusei Not Detected (Not Detect); Candida parapsilosis Not Detected (Not Detect); Candida tropicalis Not Detected (Not Detect); Haemophilus influenzae Not Detected (Not Detect); Neisseria meningitidis Not Detected (Not Detect); Proteus species Not Detected (Not Detect); Pseudomonas aeruginosa Not Detected (Not Detect); Serratia marcescens Not Detected (Not Detect)
== END 2021-07-28 05:00 | disposition short-term general hospital (02) ==
PROVIDERS: Emergency Provider Emergency Medicine; PCP Physician Assistant
DX: K85.10 Biliary acute pancreatitis without necrosis or infection (principal); Z20.822 Contact with and (suspected) exposure to COVID-19
CPT/HCPCS: 36415; 74177; 76705; 80053; 82550; 83605; 83690; 84145; 84484; 85025; 87040; 87077; 87150; 87186; 87205; 87635; 93005; 93010; 96361; 96365; 96367; 96368; 96375; 96376; 99284; C9803; J0696; J1200; J2270; J2930; Q9967

== ENCOUNTER 2023-02-06 12:47 | Emergency (ER) | payer OTHER, SELFPAY ==
[2021-03-02 14:26] VITALS: BMI 22.7
[2023-02-06 12:55] VITALS: BP 171/85; PULSE 60; RESP 16; TEMP 36.8; O2SAT 98
--- NOTE | 2023-02-06 13:36 | ED.AMS ---
HPI - Altered Mental Status <DUSTIN Castro - Last Filed: 02/07/23 11:12> General Chief Complaint: Altered Mental Status Stated Complaint: APS/HEALTH EVALUATOR consult Time Seen by Provider: 02/06/23 12:49 Source: patient and EMS Mode of arrival: EMS History of Present Illness HPI narrative: This is an 82-year-old gentleman who is brought in by ambulance with his as recommended by APS for history of dementia living with his with dementia and living in on sanitary conditions with no food in the house. Patient has a granddaughter in [place] and another grandaughter/son-in-law in [place] who are both willing to come in to the hospital today. Patient has not seen a primary care provider in the last 5 years, APS sent an e-mail to EMS and ask them to check on the patient out of recommendation from 1 of the granddaughters in [place]. Patient and his were in the home without any food and although pleasant and in good spirits, do not have any resources to help them at this time. They are here for medical screening and social work evaluation with possible placement, the family from [place] are on the way to the ED. Related Data Home Medications Medication Instructions Recorded Confirmed amlodipine 5 mg tablet 10 mg PO DAILY 12/29/18 03/02/21 losartan 100 mg tablet 100 mg PO DAILY 12/29/18 03/02/21 pravastatin 20 mg tablet 20 mg PO DAILY 12/29/18 03/02/21 venlafaxine 37.5 mg 37.5 mg PO DAILY 03/02/21 03/02/21 tablet,extended release 24 hr Allergies Allergy/AdvReac Type Severity Reaction Status Date / Time iodine [IODINE] Allergy Intermediate NAUSEA/VOMI Verified 07/27/21 21:24 TING hydrocodone [HYDROCODONE] AdvReac Intermediate ITCHING Verified 07/27/21 21:24 Review of Systems <DUSTIN Castro - Last Filed: 02/07/23 11:12> Review of Systems ROS Unobtainable: All systems reviewed & are unremarkable except as noted in HPI and below Patient History <DUSTIN Castro - Last Filed: 02/07/23 11:12> Medical History (Updated 02/06/23 @ 16:20 by DUSTIN Castro) Bronchitis Colitis COPD (chronic obstructive pulmonary disease) Diverticular disease Pancreatitis Vision disorder Surgical History Anesthesia Pectus excavatum (~1954) Family History Father No problems noted. Mother Dementia Sister COPD (chronic obstructive pulmonary disease) Grandfather History of heart disease Hyperlipidemia Hypertension Grandfather Alcoholic Social History household members: spouse Smoking Status: Former smoker alcohol intake: former Smoking Status: Former smoker alcohol intake frequency: 0-2 drinks per day Substance Use Type: marijuana Exam <DUSTIN Castro - Last Filed: 02/07/23 11:12> Narrative Exam Narrative: Reviewed vitals signs and nursing notes. General: Pleasant, sitting upright, in no acute distress, appears dirty and disheveled, confused, afebrile HEENT: symmetrical facial expressions, neck is supple CV: regular rate and rhythm, warm extremities Respiratory: normal work of breathing, without tachypnea or hypoxia. GI: abdomen soft, nondistended, without CVA tenderness bilaterally. MSK: moves all extremities, no weakness, normal tone, ambulatory without deficit Skin: brisk capillary refill, without rash or wound Neuro: clear speech and normal cognition, confused, needs frequent reminders, no focal motor or sensation deficits, frequent wandering through the hallway Initial Vital Signs Initial Vital Signs: Vital Signs Temperature 98.3 F 02/06/23 12:55 Pulse Rate 60 02/06/23 12:55 Respiratory Rate 16 02/06/23 12:55 Blood Pressure 171/85 H 02/06/23 12:55 Pulse Oximetry 98 02/06/23 12:55 Oxygen Delivery Method Room Air 02/06/23 12:55 <Senait Gould MD - Last Filed: 02/06/23 22:48> Initial Vital Signs Initial Vital Signs: Vital Signs Temperature 98.3 F 02/06/23 12:55 Pulse Rate 60 02/06/23 12:55 Respiratory Rate 16 02/06/23 12:55 Blood Pressure 171/85 H 02/06/23 12:55 Pulse Oximetry 98 02/06/23 12:55 Oxygen Delivery Method Room Air 02/06/23 12:55 Course <DUSTIN Castro - Last Filed: 02/07/23 11:12> Orders Ordered: ED Orders 02/06/23 14:00 Urine Drug Screen, Rapid Stat 02/06/23 14:57 UA Complete [Urinalysis and Microscopic] Stat Vital Signs Vital signs: Vital Signs - 8 hr 02/06/23 12:55 Temperature 98.3 F Pulse Rate 60 Respiratory Rate 16 Blood Pressure 171/85 H Pulse Oximetry 98 Oxygen Delivery Method Room Air <Senait Gould MD - Last Filed: 02/06/23 22:48> Orders Ordered: ED Orders 02/06/23 14:00 Urine Drug Screen, Rapid Stat 02/06/23 14:57 UA Complete [Urinalysis and Microscopic] Stat Vital Signs Vital signs: Vital Signs - 8 hr 02/06/23 12:55 Temperature 98.3 F Pulse Rate 60 Respiratory Rate 16 Blood Pressure 171/85 H Pulse Oximetry 98 Oxygen Delivery Method Room Air MDM - Altered Mental Status <DUSTIN Castro - Last Filed: 02/07/23 11:12> Lab Data 02/06/23 13:35 02/06/23 13:35 Labs: Lab Results 02/06/23 02/06/23 02/06/23 Range/Units 13:35 13:35 13:35 WBC 4.5 (4.5-11.0) X10^3/uL RBC 4.27 L (4.5-5.9) X10^6/uL Hgb 13.6 (13.5-17.5) g/dL Hct 39.2 L (41-53) % MCV 91.9 (80-100) fL MCH 31.8 (26-34) PG MCHC 34.6 (30-36) % RDW 13.4 (11.6-14.8) % Plt Count 130 L (150-400) X10^3/uL Neut % (Auto) 60.6 (50-75) % Lymph % (Auto) 29.3 (25-40) % [place]ble % (Auto) 8.4 (3-14) % Eos % (Auto) 1.1 L (2-4) % Baso % (Auto) 0.6 (0-2) % Neut # (Auto) 2700 (1144-6264) /uL Lymph # (Auto) 1300 (0643-6571) /uL Trimble # (Auto) 400 (0-900) /uL Eos # (Auto) 0 (0-450) /uL Baso # (Auto) 0 (0-100) /uL Sodium 137 (137-145) mmol/L Potassium 4.1 (3.4-5.1) mmol/L Chloride 105 (98-107) mmol/L Carbon Dioxide 29 (22-32) mmol/L BUN 15 (9-20) mg/dL Creatinine 0.77 (0.66-1.25) mg/dL Estimated GFR > 60 (>60) mL/min BUN/Creatinine Ratio 19.5 (6-22) Glucose 93 (80-110) mg/dL Calcium 8.3 L (8.4-10.2) mg/dL Magnesium 2.2 (1.6-2.3) mg/dL Total Bilirubin 0.4 (0.2-1.3) mg/dL AST 20 (17-59) IU/L ALT 15 (<50) IU/L Alkaline Phosphatase 48 (38-126) U/L Total Creatine Kinase 47 L (55-170) U/L Total Protein 6.1 L (6.3-8.2) g/dL Albumin 3.7 (3.5-5.0) g/dL Globulin 2.4 (1.7-4.1) g/dL Albumin/Globulin Ratio 1.5 (1.0-2.8) Lipase 190 (23-300) U/L TSH 1.98 (0.47-4.68) uIU/mL Urine Color Urine Appearance Urine pH (4.5-8.0) Ur Specific [place] (1.000-1.035) Urine Protein (Negative) Urine Glucose (UA) (Negative) g/dL Urine Ketones (NEGATIVE) Urine Occult Blood (Negative) Urine Nitrate (Negative) Urine Bilirubin (NEGATIVE) Urine Urobilinogen (0.2) E.U./dL Ur Leukocyte Esterase (NEGATIVE) Urine RBC (0-5/HPF) Urine WBC (0-5/HPF) Ur Squamous Epith Cells (0-5/HPF) Urine Bacteria (None) Ur Culture Indicated? U Opiates 300ng/mL cut (Negative) Ur Oxycodone Screen (Negative) Urine Methadone Screen (Negative) Ur Barbiturates Screen (Negative) U Tricyclic Antidepress (Negative) Ur Phencyclidine Scrn (Negative) Ur Amphetamines Screen (Negative) U Methamphetamines Scrn (Negative) Ur MDMA Scrn (Ecstasy) (Negative) U Benzodiazepines Scrn (Negative) Urine Cocaine Screen (Negative) U Marijuana (THC) Screen (Negative) 02/06/23 02/06/23 Range/Units 14:00 14:57 WBC (4.5-11.0) X10^3/uL RBC (4.5-5.9) X10^6/uL Hgb (13.5-17.5) g/dL Hct (41-53) % MCV (80-100) fL MCH (26-34) PG MCHC (30-36) % RDW (11.6-14.8) % Plt Count (150-400) X10^3/uL Neut % (Auto) (50-75) % Lymph % (Auto) (25-40) % [place]ble % (Auto) (3-14) % Eos % (Auto) (2-4) % Baso % (Auto) (0-2) % Neut # (Auto) (8660-8107) /uL Lymph # (Auto) (2486-0802) /uL Tr[place]ble # (Auto) (0-900) /uL Eos # (Auto) (0-450) /uL Baso # (Auto) (0-100) /uL Sodium (137-145) mmol/L Potassium (3.4-5.1) mmol/L Chloride (98-107) mmol/L Carbon Dioxide (22-32) mmol/L BUN (9-20) mg/dL Creatinine (0.66-1.25) mg/dL Estimated GFR (>60) mL/min BUN/Creatinine Ratio (6-22) Glucose (80-110) mg/dL Calcium (8.4-10.2) mg/dL Magnesium (1.6-2.3) mg/dL Total Bilirubin (0.2-1.3) mg/dL AST (17-59) IU/L ALT (<50) IU/L Alkaline Phosphatase (38-126) U/L Total Creatine Kinase (55-170) U/L Total Protein (6.3-8.2) g/dL Albumin (3.5-5.0) g/dL Globulin (1.7-4.1) g/dL Albumin/Globulin Ratio (1.0-2.8) Lipase (23-300) U/L TSH (0.47-4.68) uIU/mL Urine Color Yellow Urine Appearance Clear Urine pH 6.0 (4.5-8.0) Ur Specific [place] 1.010 (1.000-1.035) Urine Protein Negative (Negative) Urine Glucose (UA) Negative (Negative) g/dL Urine Ketones Negative (NEGATIVE) Urine Occult Blood Negative (Negative) Urine Nitrate Negative (Negative) Urine Bilirubin Negative (NEGATIVE) Urine Urobilinogen 0.2 (0.2) E.U./dL Ur Leukocyte Esterase Negative (NEGATIVE) Urine RBC None seen (0-5/HPF) Urine WBC None seen (0-5/HPF) Ur Squamous Epith Cells None seen (0-5/HPF) Urine Bacteria None seen (None) Ur Culture Indicated? Cult not indicated U Opiates 300ng/mL cut Negative (Negative) Ur Oxycodone Screen Negative (Negative) Urine Methadone Screen Negative (Negative) Ur Barbiturates Screen Negative (Negative) U Tricyclic Antidepress Negative (Negative) Ur Phencyclidine Scrn Negative (Negative) Ur Amphetamines Screen Negative (Negative) U Methamphetamines Scrn Negative (Negative) Ur MDMA Scrn (Ecstasy) Negative (Negative) U Benzodiazepines Scrn Negative (Negative) Urine Cocaine Screen Negative (Negative) U Marijuana (THC) Screen Negative (Negative) MDM Narrative Medical decision making narrative: Chief Complaint: Brought in for medical screening Multiple etiologies for patient's complaint considered including, but not limited to: Dementia, failure to thrive, I have independently reviewed the patient's vital signs and nursing notes as well as prior records if available. Course of Care: Medical screening has come back with unremarkable labs, they were given food, warm blankets in a room to rest in, need frequent reorientation and reminders as they both have dementia. Awaiting social work and family to arrive. Family is in route, patient will need memory care and will likely need to stay overnight, him and his are in room 2, they are redirectable pleasant, comfortable, both of them are very confused but tolerating p.o. and do not have any needs at this time. 1800 patient's family is here offering support, patient and his are calmly sitting and talking with family. Social considerations that may affect disposition: none Questions are addressed and there is agreement with the plan and for follow-up. I consulted with the ED attending physician Dr. Corrales as needed for higher level of care considerations and they were available for discussion and recommendations regarding plan of care and diagnostic testing. Son who has driven up from [employer] is available to take his father home. He is given resources left from the oncology social work. He has been through trying to find placement and dealing with end-stage dementia with his biologic mother a number of years ago and is aware of processes that will need to happen. At this point he is safe for discharge home <Senait Gould MD - Last Filed: 02/06/23 22:48> Lab Data Labs: Lab Results 02/06/23 02/06/23 02/06/23 Range/Units 13:35 13:35 13:35 WBC 4.5 (4.5-11.0) X10^3/uL RBC 4.27 L (4.5-5.9) X10^6/uL Hgb 13.6 (13.5-17.5) g/dL Hct 39.2 L (41-53) % MCV 91.9 (80-100) fL MCH 31.8 (26-34) PG MCHC 34.6 (30-36) % RDW 13.4 (11.6-14.8) % Plt Count 130 L (150-400) X10^3/uL Neut % (Auto) 60.6 (50-75) % Lymph % (Auto) 29.3 (25-40) % [place] % (Auto) 8.4 (3-14) % Eos % (Auto) 1.1 L (2-4) % Baso % (Auto) 0.6 (0-2) % Neut # (Auto) 2700 (5110-2496) /uL Lymph # (Auto) 1300 (0666-9706) /uL [place] # (Auto) 400 (0-900) /uL Eos # (Auto) 0 (0-450) /uL Baso # (Auto) 0 (0-100) /uL Sodium 137 (137-145) mmol/L Potassium 4.1 (3.4-5.1) mmol/L Chloride 105 (98-107) mmol/L Carbon Dioxide 29 (22-32) mmol/L BUN 15 (9-20) mg/dL Creatinine 0.77 (0.66-1.25) mg/dL Estimated GFR > 60 (>60) mL/min BUN/Creatinine Ratio 19.5 (6-22) Glucose 93 (80-110) mg/dL Calcium 8.3 L (8.4-10.2) mg/dL Magnesium 2.2 (1.6-2.3) mg/dL Total Bilirubin 0.4 (0.2-1.3) mg/dL AST 20 (17-59) IU/L ALT 15 (<50) IU/L Alkaline Phosphatase 48 (38-126) U/L Total Creatine Kinase 47 L (55-170) U/L Total Protein 6.1 L (6.3-8.2) g/dL Albumin 3.7 (3.5-5.0) g/dL Globulin 2.4 (1.7-4.1) g/dL Albumin/Globulin Ratio 1.5 (1.0-2.8) Lipase 190 (23-300) U/L TSH 1.98 (0.47-4.68) uIU/mL Urine Color Urine Appearance Urine pH (4.5-8.0) Ur Specific [place] (1.000-1.035) Urine Protein (Negative) Urine Glucose (UA) (Negative) g/dL Urine Ketones (NEGATIVE) Urine Occult Blood (Negative) Urine Nitrate (Negative) Urine Bilirubin (NEGATIVE) Urine Urobilinogen (0.2) E.U./dL Ur Leukocyte Esterase (NEGATIVE) Urine RBC (0-5/HPF) Urine WBC (0-5/HPF) Ur Squamous Epith Cells (0-5/HPF) Urine Bacteria (None) Ur Culture Indicated? U Opiates 300ng/mL cut (Negative) Ur Oxycodone Screen (Negative) Urine Methadone Screen (Negative) Ur Barbiturates Screen (Negative) U Tricyclic Antidepress (Negative) Ur Phencyclidine Scrn (Negative) Ur Amphetamines Screen (Negative) U Methamphetamines Scrn (Negative) Ur MDMA Scrn (Ecstasy) (Negative) U Benzodiazepines Scrn (Negative) Urine Cocaine Screen (Negative) U Marijuana (THC) Screen (Negative) 02/06/23 02/06/23 Range/Units 14:00 14:57 WBC (4.5-11.0) X10^3/uL RBC (4.5-5.9) X10^6/uL Hgb (13.5-17.5) g/dL Hct (41-53) % MCV (80-100) fL MCH (26-34) PG MCHC (30-36) % RDW (11.6-14.8) % Plt Count (150-400) X10^3/uL Neut % (Auto) (50-75) % Lymph % (Auto) (25-40) % [place] % (Auto) (3-14) % Eos % (Auto) (2-4) % Baso % (Auto) (0-2) % Neut # (Auto) (5792-0312) /uL Lymph # (Auto) (8555-0018) /uL [place] # (Auto) (0-900) /uL Eos # (Auto) (0-450) /uL Baso # (Auto) (0-100) /uL Sodium (137-145) mmol/L Potassium (3.4-5.1) mmol/L Chloride (98-107) mmol/L Carbon Dioxide (22-32) mmol/L BUN (9-20) mg/dL Creatinine (0.66-1.25) mg/dL Estimated GFR (>60) mL/min BUN/Creatinine Ratio (6-22) Glucose (80-110) mg/dL Calcium (8.4-10.2) mg/dL Magnesium (1.6-2.3) mg/dL Total Bilirubin (0.2-1.3) mg/dL AST (17-59) IU/L ALT (<50) IU/L Alkaline Phosphatase (38-126) U/L Total Creatine Kinase (55-170) U/L Total Protein (6.3-8.2) g/dL Albumin (3.5-5.0) g/dL Globulin (1.7-4.1) g/dL Albumin/Globulin Ratio (1.0-2.8) Lipase (23-300) U/L TSH (0.47-4.68) uIU/mL Urine Color Yellow Urine Appearance Clear Urine pH 6.0 (4.5-8.0) Ur Specific [place] 1.010 (1.000-1.035) Urine Protein Negative (Negative) Urine Glucose (UA) Negative (Negative) g/dL Urine Ketones Negative (NEGATIVE) Urine Occult Blood Negative (Negative) Urine Nitrate Negative (Negative) Urine Bilirubin Negative (NEGATIVE) Urine Urobilinogen 0.2 (0.2) E.U./dL Ur Leukocyte Esterase Negative (NEGATIVE) Urine RBC None seen (0-5/HPF) Urine WBC None seen (0-5/HPF) Ur Squamous Epith Cells None seen (0-5/HPF) Urine Bacteria None seen (None) Ur Culture Indicated? Cult not indicated U Opiates 300ng/mL cut Negative (Negative) Ur Oxycodone Screen Negative (Negative) Urine Methadone Screen Negative (Negative) Ur Barbiturates Screen Negative (Negative) U Tricyclic Antidepress Negative (Negative) Ur Phencyclidine Scrn Negative (Negative) Ur Amphetamines Screen Negative (Negative) U Methamphetamines Scrn Negative (Negative) Ur MDMA Scrn (Ecstasy) Negative (Negative) U Benzodiazepines Scrn Negative (Negative) Urine Cocaine Screen Negative (Negative) U Marijuana (THC) Screen Negative (Negative) MDM Narrative Medical decision making narrative: Chief Complaint: Brought in for medical screening Multiple etiologies for patient's complaint considered including, but not limited to: Dementia, failure to thrive, I have independently reviewed the patient's vital signs and nursing notes as well as prior records if available. Course of Care: Medical screening has come back with unremarkable labs, they were given food, warm blankets in a room to rest in, need frequent reorientation and reminders as they both have dementia. Awaiting social work and family to arrive. Family is in route, patient will need memory care and will likely need to stay overnight, him and his are in room 2, they are redirectable pleasant, comfortable, both of them are very confused but tolerating p.o. and do not have any needs at this time. 1800 patient's family is here offering support, patient and his are calmly sitting and talking with family. Social considerations that may affect disposition: none Questions are addressed and there is agreement with the plan and for follow-up. I consulted with the ED attending physician Dr. Corarles as needed for higher level of care considerations and they were available for discussion and recommendations regarding plan of care and diagnostic testing. Son who has driven up from [employer] is available to take his father home. He is given resources left from the oncology social work. He has been through trying to find placement and dealing with end-stage dementia with his biologic mother a number of years ago and is aware of processes that will need to happen. At this point he is safe for discharge home Discharge Plan Departure Patient Disposition: Home Clinical Impression: History of dementia, Encounter for medical assessment Instructions: DI for Alzheimer Disease Activity Restrictions/Additional Instructions: Thank you for coming up to help your parents. Dementia can be such a frustrating diagnosis for everybody involved. Unfortunately your dad has progressed to the point that unless you are able to arrange for 24 hour home care, a dementia facility is probably going to be your next most appropriate step to provide safe care for him. If you find that you are getting worse or develop any new symptoms, please feel free to return to the emergency department for further evaluation. Prescriptions: No Action losartan 100 mg tablet 100 mg PO DAILY pravastatin 20 mg tablet 20 mg PO DAILY amlodipine 5 mg tablet 10 mg PO DAILY venlafaxine 37.5 mg Tablet Extended Release 24hr 37.5 mg PO DAILY Referrals: Marcella London PA-C [Primary Care Provider] - Stand Alone Forms: Patient Portal/API
[2023-02-06 13:54] LABS: Add Manual Diff / Slide Review NO; Basophils Absolute Auto 0 /uL (0-100); Basophils Percent Auto 0.6 % (0-2); Eosinophils Absolute Auto 0 /uL (0-450); Eosinophils Percent Auto 1.1 % (2-4); Hematocrit 39.2 % (41-53); Hemoglobin 13.6 g/dL (13.5-17.5); Lymphocytes Absolute Auto 1300 /uL (1100-4500); Lymphocytes Percent Auto 29.3 % (25-40); Mean Corpuscular HGB Conc 34.6 % (30-36); Mean Corpuscular Hemoglobin 31.8 PG (26-34); Mean Corpuscular Volume 91.9 fL (80-100); Monocytes Absolute Auto 400 /uL (0-900); Monocytes Percent Auto 8.4 % (3-14); Neutrophils Absolute Auto 2700 /uL (1500-7000); Neutrophils Percent Auto 60.6 % (50-75); Platelet Count 130 X10^3/uL (150-400); Red Blood Cell Count 4.27 X10^6/uL (4.5-5.9); Red Cell Distribution Width 13.4 % (11.6-14.8); White Blood Cell Count 4.5 X10^3/uL (4.5-11.0)
[2023-02-06 14:07] LABS: Alanine Aminotransferase 15 IU/L (<50); Albumin 3.7 g/dL (3.5-5.0); Albumin Globulin Ratio 1.5 (1.0-2.8); Alkaline Phosphatase 48 U/L (38-126); Aspartate Aminotransferase 20 IU/L (17-59); BUN Creatinine Ratio 19.5 (6-22); Bilirubin Total 0.4 mg/dL (0.2-1.3); Blood Urea Nitrogen 15 mg/dL (9-20); Calcium 8.3 mg/dL (8.4-10.2); Carbon Dioxide 29 mmol/L (22-32); Chloride 105 mmol/L (98-107); Creatine Kinase 47 U/L (55-170); Estimated Glomerular Filt Rate > 60 mL/min (>60); Globulin 2.4 g/dL (1.7-4.1); Glucose 93 mg/dL (80-110); HEMOLYSIS < 15 (0-50); Lipase 190 U/L (23-300); Magnesium 2.2 mg/dL (1.6-2.3); Potassium 4.1 mmol/L (3.4-5.1); Sodium 137 mmol/L (137-145); Total Protein 6.1 g/dL (6.3-8.2)
[2023-02-06 14:46] LABS: TSH w/ Reflex to FT4 1.98 uIU/mL (0.47-4.68)
[2023-02-06 15:24] LABS: Appearance Urine UA CLEAR; Bilirubin Urine UA NEGATIVE (NEGATIVE); Color Urine UA YELLOW; Glucose Urine UA NEGATIVE (Negative); Ketones Urine UA NEGATIVE (NEGATIVE); Leukocyte Esterase Urine UA NEGATIVE (NEGATIVE); Nitrite Urine UA NEGATIVE (Negative); Occult Blood Urine UA NEGATIVE (Negative); Protein Urine UA NEGATIVE (Negative); Urobilinogen Urine UA 0.2 E.U./dL (0.2)
[2023-02-06 15:37] LABS: Bacteria Urine None Seen; Culture Indicated Urine Cult Not Indicated; RBC Urine None Seen (0-5/HPF); Squamous Epithelial Cell Urine None Seen (0-5/HPF); WBC Urine None Seen (0-5/HPF)
[2023-02-06 16:30] LABS: UR Morphine/Opiate cutoff 300 Negative (Negative); Ur Creatinine Normal (Normal); Ur Specific Gravity Normal (Normal); Urine Amphetamines Negative (Negative); Urine Barbiturates Negative (Negative); Urine Benzodiazepines Negative (Negative); Urine Cocaine Negative (Negative); Urine MDMA Negative (Negative); Urine Methadone Negative (Negative); Urine Methamphetamines Negative (Negative); Urine Oxycodone Negative (Negative); Urine Phencyclidine Negative (Negative); Urine Tetrahydrocannabinol Negative (Negative); Urine Tricyclic Antidepressant Negative (Negative); Urine pH Normal (Normal)
--- NOTE | 2023-02-06 19:01 | CM.SWNOTE ---
Addendum entered by Lata Hallman 02/11/23 15:02: PUMP INSTALLER receives call from patient's granddaughter Isatu and she states she is trying to secure a drivers' cash clerk and arranging PCP appts for patient's spouse but is unable to do so for patient. Isatu calls to request medical records from patient and patient's spouse ED visit. PUMP INSTALLER provides granddaughter with medical records phone number. PUMP INSTALLER encourages her granddaughter f/u with [facility]DR[facility]IZ[facility] and Community hide tanner as she reports that patient's family member Luis is no longer staying with them. Lata Hallman, [facility] Original Note: PUMP INSTALLER Note Patient presents to ED via EMS with spouse. A family member called for welfare check, APS was assigned and assessed patient and spouse. There was reported concern for lack of medical care, Dementia, wandering the neighborhood and lack of food, access to food and self neglect. Patient's PCP is Marcella London, it is reported that patient has not been to PCP in quite some time. Patient has [employer] Medicare insurance. PUMP INSTALLER calls MILDRED Natarajan and it is reported that he spoke with granddaughter Isatu (Ph. # [phone]) who reports that she is trying to become guardian or DPOA but lives in [place], [place]. It is reported that there is family in [facility] as well. Delgado reports that patient and spouse cannot return home unless a family member go home with him as it is unsafe for patient and spouse to return to home. Delgado reports that patient and spouse were wandering around the street, they had no idea when they last ate and there was no food in the house. There is concern for patient's ability to pay bills and manage needs. PUMP INSTALLER identifies in EMR that patient has son named Luis (Ph. # [phone]) PUMP INSTALLER calls Luis, he reports that patient and spouse have not been wanting to go to the doctor, he states that he lives in [place] and is planning to head towards [place] now. PUMP INSTALLER asks about next steps with family plan, he states he does not know at this time and will work with family to discuss this further. Son states that he has identified a rapid and recent decline for patient and spouse with their Dementia. PUMP INSTALLER asks who is going to be DPOA and it is not identified at this time. Son states that they were both independent and driving a few years ago. PUMP INSTALLER informs them that they need someone present with them if they are going to d/c and family needs to identify next steps, he states that he is on his way to . This phone call was around 1400 and at 1900 Son is not yet present. PUMP INSTALLER calls Isatu, she reports that she plans to be guardian or DPOA. She states that Luis plans to stay with patient and spouse. She states she has been in touch with APS since December after her visit to patient and spouse. She states that patient and spouse have been reluctant to help. PUMP INSTALLER calls [facility] (Ph. # [phone]/ [phone]) and leaves VM regarding patient's family member Luis not yet arriving at ED and patient and spouse are still boarding in ED. PUMP INSTALLER provides RN with Senior resource guide to RN to provide to stephanie Smith, reviews patient and spouse with ED provider. Plan: family member to pick pulling machine operator patient and spouse and stay with them at home, family to seek higher level of care and identify half-way care plan. patient and spouse are medically clear for d/c but cannot d/c to home alone. Lata Hallman, TELEVISION AUDIO ENGINEER
== END 2023-02-06 23:06 | disposition home or self-care (01) ==
PROVIDERS: Emergency Provider Nurse Practitioner Critical Care Medicine; PCP Physician Assistant
DX: R41.82 Altered mental status, unspecified (principal); F03.90 Unspecified dementia, unspecified severity, without behavioral disturbance, psychotic disturbance, mood disturbance, and anxiety
CPT/HCPCS: 36415; 80053; 80305; 81001; 82550; 83690; 83735; 84443; 85025; 99281; 99283